=== PATIENT | female | born 1940 | race Caucasian/White ===

== ENCOUNTER 2020-07-18 10:28 | Outpatient (REF) | payer MEDICARE, SELFPAY ==
[2020-07-18 14:48] LABS: Alanine Aminotransferase 26 U/L (0-31); Anion Gap 17 (12-20); Aspartate Amino Transferase 30 U/L (5-31); Blood Urea Nitrogen 18 mg/dL (9-16); Calcium 9.5 mg/dL (8.4-10.2); Carbon Dioxide 24 mmol/L (22-29); Chloride 107 mmol/L (96-108); Cholesterol 202 mg/dL; Estimated Glomerular Filt Rate > 60; Glucose Fasting 92 mg/dL (60-99); HDL Cholesterol 63 mg/dL; LDL Cholesterol Calculated 117 mg/dl; Potassium 4.5 mmol/l (3.3-5.1); Sodium 143 mmol/L (135-145); Triglycerides 111 mg/dL; Vitamin D 25-OH Total 36.7 ng/mL (>30)
== END 2020-07-18 10:29 | disposition home or self-care (01) ==
LOC: HO.HMGCLDS 10:28
PROVIDERS: PCP Internal Medicine; Visit Provider Internal Medicine
DX: F41.9 Anxiety disorder, unspecified (principal); I10 Essential (primary) hypertension; E78.5 Hyperlipidemia, unspecified; Z78.0 Asymptomatic menopausal state
CPT/HCPCS: 36415; 80048; 80061; 82306; 84450; 84460

== ENCOUNTER 2020-10-18 10:42 | Outpatient (REF) | payer MEDICARE, SELFPAY ==
--- NOTE | ~2020-10-18 | MM_ITS ---
EXAMINATION: MM SCREENING DIGITAL BREAST TOMOSYNTHESIS, BILATERAL CLINICAL INFORMATION: Screening. Asymptomatic. The lifetime risk of breast cancer based on the Tyrer-Cuzick Model is 20%. COMPARISON: Mammography: September 30, 2018 and studies dating back to February 09, 2014 TECHNIQUE: Digital breast tomosynthesis is performed in both the craniocaudal and mediolateral oblique views along with computer-aided detection (CAD). Synthesized 2D images are generated from the tomosynthesis. FINDINGS: The breasts are heterogeneously dense, which may obscure small masses (ACR BI-RADS breast composition Category c). There are no significant masses, abnormal calcifications, or other abnormalities. MM/MM tomosynthesis screening BI IMPRESSION: There are no significant changes from prior study. ASSESSMENT: BI-RADS 1: Negative RECOMMENDATION: Routine annual mammography screening. This patient's information was entered into a reminder system with a target due date for their next mammogram.
== END 2020-10-18 10:43 | disposition home or self-care (01) ==
LOC: HO.MAMMO 10:42
PROVIDERS: PCP Internal Medicine; Visit Provider Internal Medicine
DX: Z12.31 Encounter for screening mammogram for malignant neoplasm of breast (principal)
CPT/HCPCS: 77063; 77067

== ENCOUNTER 2020-11-22 10:50 | Outpatient (REF) | payer MEDICARE, SELFPAY ==
[2020-11-22 14:43] LABS: Alanine Aminotransferase 18 U/L (0-31); Albumin Level 4.3 g/dL (3.5-5.0); Alkaline Phosphatase 76 U/L (39-117); Anion Gap 14 (12-20); Aspartate Amino Transferase 22 U/L (5-31); Bilirubin Total 0.7 mg/dL (0.0-1.0); Blood Urea Nitrogen 16 mg/dL (9-16); Calcium 9.5 mg/dL (8.4-10.2); Carbon Dioxide 27 mmol/L (22-29); Chloride 105 mmol/L (96-108); Cholesterol 203 mg/dL; Estimated Glomerular Filt Rate > 60; Glucose Fasting 99 mg/dL (60-99); HDL Cholesterol 71 mg/dL; LDL Cholesterol Calculated 118 mg/dl; Potassium 4.1 mmol/L (3.3-5.1); Sodium 142 mmol/L (135-145); Triglycerides 74 mg/dL
[2020-11-22 15:08] LABS: Vitamin D 25-OH Total 40.4 ng/mL (>30)
== END 2020-11-22 10:51 | disposition home or self-care (01) ==
LOC: HO.HMGCLDS 10:50
PROVIDERS: PCP Internal Medicine; Visit Provider Internal Medicine
DX: I10 Essential (primary) hypertension (principal); E78.5 Hyperlipidemia, unspecified; F41.1 Generalized anxiety disorder; M85.852 Other specified disorders of bone density and structure, left thigh; Z78.0 Asymptomatic menopausal state
CPT/HCPCS: 36415; 80053; 80061; 82306

== ENCOUNTER 2021-07-03 10:11 | Outpatient (REF) | payer MEDICARE, SELFPAY ==
[2021-07-03 12:21] LABS: Alanine Aminotransferase 19 U/L (0-31); Anion Gap 11 (12-20); Aspartate Amino Transferase 21 U/L (5-31); Blood Urea Nitrogen 15 mg/dL (9-16); Calcium 10.2 mg/dL (8.4-10.2); Carbon Dioxide 30 mmol/L (22-29); Chloride 106 mmol/L (96-108); Cholesterol 205 mg/dL; Estimated Glomerular Filt Rate > 60; Glucose Fasting 106 mg/dL (60-99); HDL Cholesterol 63 mg/dL; LDL Cholesterol Calculated 124 mg/dl; Sodium 143 mmol/L (135-145); Triglycerides 92 mg/dL
[2021-07-03 12:54] LABS: Folate 16.6 ng/mL (> or = 4.0); Vitamin B12 676 pg/mL (200-900)
== END 2021-07-03 10:12 | disposition home or self-care (01) ==
LOC: HO.HMGCLDS 10:11
PROVIDERS: PCP Internal Medicine; Visit Provider Internal Medicine
DX: M85.852 Other specified disorders of bone density and structure, left thigh (principal); I10 Essential (primary) hypertension; E78.5 Hyperlipidemia, unspecified; Z78.0 Asymptomatic menopausal state
CPT/HCPCS: 36415; 80048; 80061; 82306; 82607; 82746; 84450; 84460

== ENCOUNTER 2022-01-01 10:27 | Outpatient (REF) | payer MEDICARE, SELFPAY ==
[2022-01-01 12:16] LABS: Alanine Aminotransferase 13 U/L (0-31); Anion Gap 13 (12-20); Aspartate Amino Transferase 19 U/L (5-31); Blood Urea Nitrogen 16 mg/dL (9-16); Calcium 9.8 mg/dL (8.4-10.2); Carbon Dioxide 27 mmol/L (22-29); Chloride 104 mmol/L (96-108); Cholesterol 212 mg/dL; Estimated Glomerular Filt Rate > 60; Glucose Fasting 108 mg/dL (60-99); HDL Cholesterol 64 mg/dL; LDL Cholesterol Calculated 131 mg/dl; Potassium 4.1 mmol/L (3.3-5.1); Sodium 140 mmol/L (135-145); Triglycerides 86 mg/dL
[2022-01-01 12:20] LABS: Vitamin D 25-OH Total 42.5 ng/mL (>30)
[2022-01-01 13:11] LABS: Folate 16.5 ng/mL (> or = 4.0); Vitamin B12 552 pg/mL (200-900)
== END 2022-01-01 10:28 | disposition home or self-care (01) ==
LOC: HO.HMGCLDS 10:27
PROVIDERS: Visit Provider Internal Medicine
DX: I10 Essential (primary) hypertension (principal); M85.852 Other specified disorders of bone density and structure, left thigh; E78.5 Hyperlipidemia, unspecified
CPT/HCPCS: 36415; 80048; 80061; 82306; 82607; 82746; 84450; 84460

== ENCOUNTER 2022-02-22 12:07 | Outpatient (REF) | payer MEDICARE, SELFPAY ==
--- NOTE | ~2022-02-22 | XR_ITS ---
EXAMINATION: XR LUMBOSACRAL SPINE WITH OBLIQUES CLINICAL INFORMATION: Continued low back pain COMPARISON: 12/27/2016 TECHNIQUE: AP, both oblique, and lateral views of the lumbar spine. Lateral view of the lumbosacral junction. FINDINGS: There is a severe compression fracture L4. This is new. Moderate compression deformity L1 and L2 are noted. These are unchanged. There is degenerative change at the lumbosacral junction. XR/XR lumbar spine 4V min IMPRESSION: Compression fractures noted, with the L4 fracture new.
== END 2022-02-22 12:08 | disposition home or self-care (01) ==
LOC: HO.HMGCX 12:07
PROVIDERS: PCP Internal Medicine; Visit Provider Student in an Organized Health Care Education/Training Program
DX: M47.816 Spondylosis without myelopathy or radiculopathy, lumbar region (principal)
CPT/HCPCS: 72110

== ENCOUNTER 2022-03-20 12:49 | Outpatient (REF) | payer MEDICARE, SELFPAY ==
--- NOTE | ~2022-03-20 | MR_ITS ---
EXAMINATION: MR LUMBAR SPINE WITHOUT CONTRAST CLINICAL INFORMATION: 81-year-old with previously noted compression fractures. COMPARISON: 02/22/2022 x-rays. TECHNIQUE: MRI of the lumbar spine was obtained using routine sequences without contrast. FINDINGS: Coronal Alignment: There is mid lumbar dextro scoliosis, convex to the right at L3, with the mild degrees of rezn-lc-mpvwp lateral listhesis at L4-L5 and L3-L4 and aljnd-ml-yqpf lateral listhesis at L2-L3 and L1-L2. Sagittal Alignment: There are mild degrees of grade 1 degenerative spondylolisthesis at L4-L5 and L3-L4 and trace retrolisthesis at L2-L3 with otherwise normal lumbar lordotic curvature. Lumbosacral Junction: Normal. 5 sdb-znz-rizwgvv lumbar-type vertebral bodies suspected. 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 Vertebral Bodies: L5 is normal in height. There is ozft-dc-fpjsijvr chronic loss of height asymmetric to the right at L4, which appears healed, with prominent concavity along the superior endplate. There is mild chronic loss of height asymmetric to the right at L3 with prominent concavity along the superior endplate. There is moderate anterior wedge compression deformity of L2, which appears chronic with prominent concavity along the superior endplate, with similar findings at L1. There is a mild to moderate nonhealed superior endplate compression fracture of T12, with marrow edema throughout the T12 vertebral body and extending into the pedicles and posterior elements bilaterally. T11 and T10 appear normal in height. Disc Spaces and Endplates: Severe disc space height loss at L5-S1 with disc desiccation, Schmorl's nodes and prominent anterolateral spondylosis. Disc desiccation at L4-L5 with mild height loss on the right at this level and mild spondylosis. Disc desiccation at L3-L4 with anterior and paravertebral spondylosis and ovcvigst-bn-dpsohl height loss on the left at this level. Disc desiccation and moderate to marked height loss on the left at L2-L3 with anterior and paravertebral spondylosis. Disc desiccation, with moderate disc space height loss, Schmorl's nodes and spondylosis at L1-L2, with disc desiccation at the remaining levels and prominent anterolateral spondylosis with bridging osteophytosis anteriorly at T10-T11. Spinal Canal: Moderately prominent epidural fat noted throughout the mid lumbar canal. Bone Marrow: Marrow edema at T12 as described above consistent with a compression fracture. Type I degenerative marrow signal changes noted along the endplates posteriorly asymmetric to the left at L2-L3. Decreased T1 marrow signal in the T12 vertebral body and pedicles is likely reflective of marrow edema secondary to compression fracture. There is heterogeneous marrow signal seen throughout the remainder of the osseous structures on T1-weighted imaging which is nonspecific and should be correlated with clinical history and CBC with differential. Conus Medullaris: Terminates at L1. Morphology and signal is normal. Intradural Nerve Roots: Within normal limits. L5-S1: Concentric disc osteophyte complex noted with mild flattening of the ventral dural sac and moderate bilateral facet arthropathy without significant canal stenosis. Minor foraminal narrowing is noted bilaterally without neural impingement. L4-L5: Unroofing of the posterior disc margin is noted consistent with grade 1 spondylolisthesis. Mild posterior disc osteophyte complex asymmetric to the right noted with xgtk-hv-vvorouxg flattening of the ventral dural sac asymmetric to the right and mild ligamentum flavum thickening. Severe bilateral facet arthropathy is noted with borderline central spinal canal stenosis and slight narrowing of the right subarticular recess. Mild foraminal narrowing noted on the right without neural impingement. L3-L4: Unroofing of the posterior disc margin consistent with grade 1 spondylolisthesis, with pseudodisc bulging and a superimposed small right subarticular to foraminal disc protrusion. There is flattening of the ventral dural sac with a prominent dorsal epidural fat pad and marked ligamentum flavum thickening with interspinous ligament degeneration. Severe left-sided and moderate to severe right-sided facet arthropathy is also noted. There is moderate to severe central spinal canal stenosis, with crowding of the intradural nerve roots and pylt-bv-kscyynye left subarticular recess stenosis. There is mild bilateral neural foraminal stenosis, with disc osteophyte complex contacting the exiting right L3 nerve root. L2-L3: Concentric disc bulging and endplate spurring is noted with vbpg-bx-zojzpgsn flattening of the ventral dural sac. Prominent dorsal epidural fat pad noted with ligamentum flavum thickening and interspinous ligament degeneration. Severe left-sided and moderate right-sided facet arthrosis is present with mild central spinal canal stenosis without significant lateral recess stenosis. Moderate left-sided and tmqp-zo-excdjosi right-sided neural foraminal stenosis is noted with facet spurring impinging on the exiting left L2 nerve root and disc bulging contacting the extraforaminal right L2 nerve root. L1-L2: Broad-based posterior disc osteophyte complex noted with mepa-cs-nqiiumqv flattening of the ventral dural sac with a prominent dorsal epidural fat pad and zrgg-fa-ubzoohdc bilateral facet arthrosis with ligamentum flavum thickening. No significant spinal central canal stenosis. There is mild narrowing of the left subarticular zone and there is vkog-gb-gavclxum bilateral neural foraminal stenosis without exiting neural impingement. T12-L1: Minor posterolateral disc protrusions bilaterally with slight flattening of the ventral dural sac and minor facet arthrosis without significant canal or neuroforaminal stenosis. T11-T12: Mild retropulsion of the compressed superior endplate of T12 is noted with mild flattening of the ventral dural sac without cord impingement or canal stenosis. No disc bulge or herniation. There is moderate bilateral facet arthropathy and there is subchondral marrow edema on both sides of both facet joints, which is nonspecific and could be related to stress reactions from the previous trauma or could be secondary to reactive changes from facet arthropathy. There is moderate to severe bilateral neural foraminal stenosis with possible encroachment on the exiting right T11 nerve root. Paraspinal/Retroperitoneal: There is npbxqrow-ki-wvxqws diffuse posterior paraspinal muscle volume loss and tjud-kh-zanlcxlz psoas muscle volume loss, left more than right. No paraspinal soft tissue masses or hematoma. Multiple simple-appearing parapelvic cysts in the right kidney noted with similar findings in the left kidney. Limited evaluation.?No specific follow up recommended based on the current ACR Best Practice Guidelines.?1.1 cm probable cyst in the right hepatic lobe. Marked tortuosity of the abdominal aorta with 2.5 cm of focal dilatation distally. Left adrenal thickening versus mass. Faintly visualized T2 hyperintense zone measuring 2.8 cm spanning the left and right hepatic lobes. Cannot exclude a mass. MR/MR lumbar spine wo con IMPRESSION: 1. Lumbar dextroscoliosis, with extensive multilevel degenerative subluxations as described above associated with multilevel DDD and spondylosis. 2. Mild to moderate nonhealed superior endplate compression fracture of T12 with marrow edema extending into the posterior elements of T11 and T12 adjacent to the facet joints. This latter finding could reflect stress reactions or could be secondary to facet arthropathy at this level. 3. Chronic, healed compression fracture deformities of L1, L2, L3 and L4 as detailed above. 4. Extensive multilevel bilateral facet arthropathy and ligamentum flavum thickening with multilevel interspinous ligament degeneration. 5. Moderate to severe spinal canal stenosis at L3-L4 and mild spinal canal stenosis at L4-L5 and L2-L3 as detailed above. 6. Multilevel bilateral neural foraminal stenosis as detailed above. 7. Multiple abdominal findings as discussed above warranting further assessment with CT of the abdomen with IV contrast.
== END 2022-03-20 12:50 | disposition home or self-care (01) ==
LOC: HO.MRI 12:49
PROVIDERS: Visit Provider Student in an Organized Health Care Education/Training Program
DX: S32.000A Wedge compression fracture of unspecified lumbar vertebra, initial encounter for closed fracture (principal)
CPT/HCPCS: 72148

== ENCOUNTER 2022-07-09 09:40 | Outpatient (REF) | payer MEDICARE, SELFPAY ==
[2022-07-09 11:50] LABS: Alanine Aminotransferase 14 U/L (0-31); Anion Gap 10 (12-20); Aspartate Amino Transferase 20 U/L (5-31); Blood Urea Nitrogen 16 mg/dL (9-16); Calcium 9.6 mg/dL (8.4-10.2); Carbon Dioxide 30 mmol/L (22-29); Chloride 106 mmol/L (96-108); Cholesterol 213 mg/dL; Estimated Glomerular Filt Rate > 60; Glucose Fasting 102 mg/dL (60-99); HDL Cholesterol 66 mg/dL; LDL Cholesterol Calculated 131 mg/dl; Sodium 142 mmol/L (135-145); Triglycerides 83 mg/dL
[2022-07-09 12:06] LABS: Vitamin D 25-OH Total 42.8 ng/mL (>30)
[2022-07-09 12:14] LABS: Folate 11.7 ng/mL (> or = 4.0); Vitamin B12 647 pg/mL (200-900)
== END 2022-07-09 09:41 | disposition home or self-care (01) ==
LOC: HO.HMGCLDS 09:40
PROVIDERS: PCP Internal Medicine; Visit Provider Internal Medicine
DX: E78.5 Hyperlipidemia, unspecified (principal); F41.1 Generalized anxiety disorder; M85.852 Other specified disorders of bone density and structure, left thigh; N95.9 Unspecified menopausal and perimenopausal disorder; I10 Essential (primary) hypertension
CPT/HCPCS: 36415; 80048; 80061; 82306; 82607; 82746; 84450; 84460

== ENCOUNTER 2022-07-12 13:23 | Outpatient (AMB) | payer MEDICARE, SELFPAY ==
--- NOTE | 2022-07-12 13:26 | A.OFFPC_ITS ---
Vital Signs 07/12/22 13:30 Height 5 ft 6 in Weight 152 lb BMI 24.5 BP 110/70 Blood Pressure Location Rt brachial Position Sitting Pulse 88 Pulse Source Pulse Oximeter Pulse Oximetry (%) 98 Oxygen Delivery Method Room Air Intake Visit Reasons: 6 months f/u Allergies ranitidine [Zantac] Allergy (Unknown, Verified 11/02/22 12:04) fever and rash lisinopril Adverse Reaction (Unknown, Verified 11/02/22 12:04) dry cough famotidine [From Pepcid] Adverse Reaction (Verified 11/02/22 12:04) elevates BP Medication List - Last Reconciled 07/12/22 by Ijeoma Toledo MD cholecalciferol (vitamin D3) 50 mcg PO DAILY cyanocobalamin (vitamin B-12) 1,000 mcg PO DAILY flu vac 2020 [id number](PF) 60 mcg (15 mcg x 4)/0.5 mL IM fluticasone propionate 50 mcg/actuation 1 spray intranasal DAILY PRN hydrochlorothiazide 12.5 mg PO DAILY hydrocortisone 2.5% 1 appl FL BID PRN lorazepam 1 mg PO DAILY PRN pravastatin 20 mg PO DAILY Tobacco use date assessed: 07/12/22 Fall risk assessment: No Falls in past year HPI 6 months f/u HPI Details 81-year-old lady with history of COPD, o steopenia of left femoral neck,, and generalized anxiety disorder here today for follow-up on her hypertension and dyslipidemia. She has been compliant with taking her medications, tries to follow recommended diet . Would like to discontinue hydrochlorothiazide due to urinary frequency, blood pressure has been stable. Latest fasting lipids showed results within normal limits except for slightly elevated LDL cholesterol, unchanged from last check 6 months ago. Blood pressure has been stable and controlled on present treatment.. Continues to smoke cigarettes with no desire to quit at present time [facility] Medical History (Updated 03/17/23 @ 18:45 by Ijeoma Toledo MD) Postmenopausal atrophic vaginitis History of compression fracture of spine Impaired fasting glucose Frontal fibrosing alopecia Hx of basal cell carcinoma External hemorrhoids Basal cell carcinoma (BCC) of upper extremity Smoker unmotivated to quit COPD (chronic obstructive pulmonary disease) Lumbar compression fracture Osteopenia of left femoral neck Essential hypertension Dyslipidemia Generalized anxiety disorder Surgical History History of ganglion cyst H/O left breast biopsy History of tonsillectomy History of colonoscopy Family History Father No problems noted. Mother No problems noted. Sister No problems noted. Sister Breast cancer Endometrial cancer Daughter No problems noted. Daughter No problems noted. Social History Housing: House Alcohol intake: current Patient Tobacco Use Status: Current everyday Tobacco user Cigarette Packs Per Day: 0 Cigarettes Per Day: 15 Years Smoked: 68 e-Cigarette/Vaping Use: Never Used service: No Current occupational status: retired Cognitive needs: No Hearing needs: No Vision needs: Yes Questionnaire PHQ-9 Over the last 2 weeks, how often have you been bothered by any of the following problems? 1. Little interest or pleasure in doing things: not at all 2. Feeling down, depressed, or hopeless: not at all 3. Trouble falling or staying asleep, or sleeping too much: not at all 4. Feeling tired or having little energy: not at all 5. Poor appetite or overeating: not at all 6. Feeling bad about yourself - or that you are a failure or have let yourself or your family down: not at all 7. Trouble concentrating on things, such as reading the newspaper or watching television: not at all 8. Moving or speaking so slowly that other people could have noticed. Or the opposite - being so fidgety or restless that you have been moving around a lot more than usual: not at all 9. Thoughts that you would be better off or of hurting yourself in some way: not at all Total score: 0 Depression Screening Interpretation: Negative 12466 - PHQ-9 Billing: Yes Source: Developed by Drs. Ronny England, Yesy Garcia, Feliz Garay and colleagues, with an educational orly from [employer]. Thrive Questionnaire Date Thrive assessed: 07/12/22 I am a: Patient What is your living situation today?: I have a steady place to live Within the past 12 months, did the food you bought not last and you didn't have the money to get more?: Never true Within the past 12 months, did you worry whether your food would run out before you got money to buy more?: Never true Do you have trouble paying for medicines?: No Do you have trouble getting transportation to medical appointments?: No Do you have trouble paying your heating and electricity bill?: No Do you have trouble taking care of your child, family member or friend?: No Do you have trouble with day-to-day activities such as bathing, preparing meals, shopping, managing finances, etc.?: No Are you currently unemployed and looking for a job?: No Are you interested in more education?: No AUDIT C Alcohol Use Questionnaire (AUDIT-C) 1. How often do you have a drink containing alcohol?: Monthly or less 2. How many drinks containing alcohol do you have on a typical day when you are drinking?: 1 or 2 3. How often do you have six or more drinks on one occasion?: Never Total Score: 1 KALINA-7 AMB Questionnaire KALINA-7 Date KALINA - 7 assessed: 07/12/22 Feeling nervous, anxious, or on edge: 0 = Not at all Not being able to stop or control worryin = Not at all Worrying too much about different things: 0 = Not at all Trouble relaxin = Not at all Being so restless that it is hard to sit still: 0 = Not at all Becoming easily annoyed or irritable: 0 = Not at all Feeling afraid as if something awful might happen: 0 = Not at all Total KALINA-7 score (0-4 normal; 5-9 mild; 10-14 moderate; 15-21 severe): 0 Source: Developed by Drs. Ronny England, Yesy Garcia, Feliz Garay and colleagues, with an educational orly from [employer]. KALINA-7 Assessment Billing KALINA-7 Assessment Tool: KALINA-7 Assessment 09390 Review of Systems Const Denies body aches, Reports difficulty sleeping (Occasional), Denies fatigue, Denies fever(s), Denies headache(s) and Denies weakness ENT Denies dizziness, Denies headache(s), Denies nasal congestion, Denies nasal discharge and Denies sore throat Card Denies chest pain, Denies lightheadedness, Denies palpitations and Denies dyspnea Resp Denies chest congestion, Denies cough and Denies dyspnea GI Denies abdominal pain, Denies change in bowel habits and Denies heartburn Denies urinary frequency, Denies dysuria and Denies urinary urgency Musc Reports no additional complaints Neuro Denies dizziness, Denies headache(s) and Denies weakness Psych Reports abnormal sleep pattern, Denies depression, Denies difficulty concentrating, Denies homicidal ideation and Denies suicidal ideation Endo Denies fatigue, Denies polydipsia, Denies polyuria and Denies palpitations Physical exam (Primary Care) Vital Signs: Last Vital Signs Pulse 88 07/12/22 13:30 BP 110/70 07/12/22 13:30 Pulse Ox 98 07/12/22 13:30 Oxygen Delivery Method Room Air 07/12/22 13:30 BMI result Body Mass Index 24.5 Tobacco/Smoking Status: Tobacco use Status Tobacco use date assessed 07/12/22 07/12/22 13:31 Patient Tobacco Use Status Current everyday Tobacco 07/12/22 13:28 e-Cigarette/Vaping Use Never Used 07/12/22 13:28 PHQ-9: PHQ-9 Score PHQ-9: Total score 0 11/02/22 12:35 Depression Screening Interpretation: Negative Thrive Assessment: Date of Thrive Assessment Date Thrive assessed 07/12/22 07/12/22 15:51 Const Other: Alert oriented x3 no acute distress noted ambulatory normal gait Orientation/consciousness: patient oriented x3 HENMT Other: Normocephalic atraumatic, no nasal drainage, moist oral mucosa Eyes General: appearance normal, both eyes and all related structures Neck Other: Neck is supple with no lymphadenopathy palpated, thyroid gland nonpalpable Neck: Yes no meningeal signs Resp Other: Clear to auscultation bilaterally Cardio Other: S1-S2 present regular rate and rhythm GI Other: Normal bowel sounds, soft, nontender, no mass palpated Neuro General: patient oriented x3, gait normal, moves all extremities, Normal light touch and pain sensation, no meningeal signs and no focal motor deficits Extrem General: Yes full ROM, Yes no joint enlargement, Yes no pedal edema, Yes no calf tenderness and Yes normal gait Psych Appearance: grossly normal Mental Status: mental status grossly normal Speech and movement: Normal speech and movement present Affect: normal affect Attitude: cooperative Thought process: Normal thought process present Immunizations pneumoc 20-venessa conj-dip cr(PF) 0.5 mL IM syringe Performing Provider: Ijeoma Toledo MD [facility] Administered by: Ade Estrada RN on 07/12/22 14:17 Dose Route Admin Location Dispensed Lot Number Expiration Date NDC Swimming Pool Maintenance Supervisor 0.5 mL IM Left Deltoid 0.5 mL [id number] 10/22/23 8911-5700-60 WYETH/PFIZER VIS Given Date VIS Provided VIS Publication Date 07/12/22 Single Vaccine 21 Eligibility Eligibility Date Funding Source Not VFC Eligible 07/12/22 Private Results Reviewed Results Reviewed: ENTERED: 07/09/[address]: ORDERED: Met Prof Fast, AST, ALT, Lipid Panel, Vitamin D 25-OH Test Result Flag Reference Site Sodium 142 135-145 mmol/L Potassium 4.0 3.3-5.1 mmol/L CL 106 96-108 mmol/L CO2 30 H 22-29 mmol/L Gap 10 L 12-20 BUN 16 9-16 mg/dL Creat 0.69 0.5-1.4 mg/dL EGFR > 60 NOTE: For -[place] individuals, multiply the result by 1.210. Chronic Kidney Disease: Estimated GFR < 60 mL/min/1.73m2 Severe Kidney Disease: Estimated GFR < 15 mL/min/1.73m2 FBS 102 H 60-99 mg/dL A fasting glucose from 100-125 mg/dl is considered impaired (pre-diabetes). CA 9.6 8.4-10.2 mg/dL AST (GOT) 20 5-31 U/L ALT (GPT) 14 0-31 U/L Triglyceride 83 mg/dL Desirable Triglyceride: less than 150 mg/dL Borderline High Triglyceride 150-199 mg/dL High Triglyceride: 200-499 mg/dL Very High Triglyceride: greater than or equal to 5OO mg/dL Chol 213 mg/dL Desirable Cholesterol: less than 200 mg/dL Borderline High Cholesterol: 200-239 mg/dL High Cholesterol: greater than 239 mg/dL LDL Calculated 131 mg/dl Desirable LDL: less than 100 mg/dL Near Optimal/Above Optimal LDL: 110-129 mg/dL Borderline High LDL: 130-159 mg/dL High LDL: 160-189 mg/dL Very High LDL: greater than or equal to 190 mg/dL HDL 66 mg/dL Desirable HDL: greater than 40 mg/dL Note: This HDL assay may give artificially low results in patients with liver disease. Vit D 25-OH Tot 42.8 >30 ng/mL Health Based Reference Values* < 20 ng/mL Deficient 20-30 ng/mL Insufficient > 30 ng/mL Sufficient Assessment and Plan Assessment & Plan (1) Osteopenia of left femoral neck: Code(s): M85.852 - Other specified disorders of bone density and structure, left thigh Plan: Continued regular weight-bearing exercise, continue taking vitamin-D 3 supplements daily, and calcium from dietary sources. Bone density scan ordered (2) History of compression fracture of spine: Code(s): Z87.81 - Personal history of (healed) traumatic fracture (3) Impaired fasting glucose: Code(s): R73.01 - Impaired fasting glucose Plan: Your fasting blood sugars elevated above 100 mg/dL. Impaired glucose metabolism O2 at risk for developing diabetes mellitus type 2, as well as heart attack and stroke later on. Lifestyle changes at just weight loss, healthy eating habits, and regular exercise are important, and can prevent the progression to diabetes Prevnar 20 given today (4) Essential hypertension: Code(s): I10 - Essential (primary) hypertension Plan: Blood pressure at goal of less than 130/80. Continue with current medication but except for hydrochlorothiazide which was discontinued. Reinforced importance of following a low sodium diet, getting regular exercise, and lowering stress levels. (5) Dyslipidemia: Code(s): E78.5 - Hyperlipidemia, unspecified Plan: Reviewed recent fasting lipid profile with patient with levels within normal limits . Continue with pravastatin 20 mg at bedtime , in addition to adherence to low-cholesterol diet and regular exercise, at least 30 minutes 3 to 4 times a week. Advised patient to make healthy food choices, eat more fruits, vegetables, whole grains, wild caught fish and low-fat dairy. Limit amount of meat and fried or fatty food products, as well as processed foods and fast foods. (6) Generalized anxiety disorder: Code(s): F41.1 - Generalized anxiety disorder Plan: Continue lorazepam taken 1 mg as needed for acute anxiety attacks Orders: Orders XR DEXA axial skeleton 07/12/22 M85.852 - Other specified disorders of bone density and structure, left thigh, Z87.81 - Personal history of (healed) traumatic fracture Pneumococcal 20 Immunization 07/12/22 Z23 - Encounter for immunization, Z87.81 - Personal history of (healed) traumatic fracture, R73.01 - Impaired fasting glucose, M85.852 - Other specified disorders of bone density and structure, left thigh, I10 - Essential (primary) hypertension, E78.5 - Hyperlipidemia, unspecified, S32.000A - Wedge compression fracture of unspecified lumbar vertebra, initial encounter for closed fracture Aspartate Amino Transferase 11/19/22 Z87.81 - Personal history of (healed) traumatic fracture, R73.01 - Impaired fasting glucose, M85.852 - Other specified disorders of bone density and structure, left thigh, I10 - Essential (primary) hypertension, E78.5 - Hyperlipidemia, unspecified, S32.000A - Wedge compression fracture of unspecified lumbar vertebra, initial encounter for closed fracture Lipid Panel 11/19/22 Z87.81 - Personal history of (healed) traumatic fracture, R73.01 - Impaired fasting glucose, M85.852 - Other specified disorders of bone density and structure, left thigh, I10 - Essential (primary) hypertension, E78.5 - Hyperlipidemia, unspecified, S32.000A - Wedge compression fracture of unspecified lumbar vertebra, initial encounter for closed fracture Alanine Aminotransferase 11/19/22 Z87.81 - Personal history of (healed) traumatic fracture, R73.01 - Impaired fasting glucose, M85.852 - Other specified disorders of bone density and structure, left thigh, I10 - Essential (primary) hypertension, E78.5 - Hyperlipidemia, unspecified, S32.000A - Wedge compression fracture of unspecified lumbar vertebra, initial encounter for closed fracture Vitamin D 25-OH Total 11/19/22 Z87.81 - Personal history of (healed) traumatic fracture, R73.01 - Impaired fasting glucose, M85.852 - Other specified disorders of bone density and structure, left thigh, I10 - Essential (primary) hypertension, E78.5 - Hyperlipidemia, unspecified, S32.000A - Wedge compression fracture of unspecified lumbar vertebra, initial encounter for closed fracture Hemoglobin A1c 11/19/22 Z87.81 - Personal history of (healed) traumatic fracture, R73.01 - Impaired fasting glucose, M85.852 - Other specified disorders of bone density and structure, left thigh, I10 - Essential (primary) hypertension, E78.5 - Hyperlipidemia, unspecified, S32.000A - Wedge compression fracture of unspecified lumbar vertebra, initial encounter for closed fracture Basic Metabolic Panel Fasting 11/19/22 Z87.81 - Personal history of (healed) traumatic fracture, R73.01 - Impaired fasting glucose, M85.852 - Other specified disorders of bone density and structure, left thigh, I10 - Essential (primary) hypertension, E78.5 - Hyperlipidemia, unspecified, S32.000A - Wedge compression fracture of unspecified lumbar vertebra, initial encounter for closed fracture Medications: Discontinued hydrochlorothiazide Discontinued Reason: Doctor's Order 12.5 mg PO DAILY 90 caps 3RF Coding Level of Care Code Est Pt Level 4 (55853) Diagnoses Osteopenia of left femoral neck M85.852 History of compression fracture of spine Z87.81 Impaired fasting glucose R73.01 Essential hypertension I10 Dyslipidemia E78.5 Generalized anxiety disorder F41.1 Additional Codes KALINA-7 Assessment Billing - KALINA-7 Assessment Tool: KALINA-7 Assessment 82299 ([id number])
[2022-07-12 13:30] VITALS: BP 110/70; PULSE 88; O2SAT 98; BMI 24.5
== END 2022-07-12 14:10 | disposition home or self-care (01) ==
LOC: HO.HMGC 13:24
PROVIDERS: PCP Internal Medicine; Visit Provider Internal Medicine
DX: M85.852 Other specified disorders of bone density and structure, left thigh (principal); Z87.81 Personal history of (healed) traumatic fracture; R73.01 Impaired fasting glucose; I10 Essential (primary) hypertension; E78.5 Hyperlipidemia, unspecified; F41.1 Generalized anxiety disorder; Z23 Encounter for immunization; S32.000A Wedge compression fracture of unspecified lumbar vertebra, initial encounter for closed fracture
CPT/HCPCS: 90471; 90677; 99214

== ENCOUNTER 2022-07-25 12:53 | Outpatient (REF) | payer MEDICARE, SELFPAY ==
--- NOTE | ~2022-07-25 | MM_ITS ---
EXAMINATION: BONE DENSITOMETRY CLINICAL INDICATION: Osteopenia. COMPARISON: Previous BD dated 09/30/2018 and baseline BD dated 03/27/2013. MR lumbar spine 03/20/2022. TECHNIQUE: Using a [employer] DXA System (software version: 13.1) manufactured by [employer], dual-energy x-ray absorptiometry was performed of the lumbar spine and left hip. The images are of good technical quality. Summary results are attached. FINDINGS: AP SPINE L1-L4 (excluding L2 and L3): The data of L1-L4 has been changed to exclude the L2 and L3 vertebral bodies, because degenerative changes at these levels may cause overestimation of lumbar spine density. Old compressions at L1 and L1 L4 may also be overestimated of the lumbar bone density. Current: BMD 1.104 g/cm2, Z-score 1.3, T-score -0.5, normal, 0.7% increase from previous, 8.6% decrease from baseline (<5% change is not significant). Prior: BMD 1.096 g/cm2. Baseline: BMD 1.208 g/cm2. LEFT FEMUR, NECK: Current: BMD 0.731 g/cm2, Z-score 0.0, T-score -2.2, osteopenia. Prior: BMD 0.804 g/cm2. Baseline: BMD 0.790 g/cm2. LEFT FEMUR, TOTAL: Current: BMD 0.745 g/cm2, Z-score 0.0, T-score -2.1, osteopenia, 9.3% decrease from previous, 8.6% decrease from baseline (<5% change is not significant). Prior: BMD 0.821 g/cm2. Baseline: BMD 0.815 g/cm2. IDENTIFIED RISK FACTORS: Menopause, height loss, history of fracture (adult), thiazide, tobacco use (current smoker). HISTORY OF FRACTURE: T11, T12, L1, L2, L3, and L4. MEDICATIONS: Vitamin D. MM/XR DEXA axial skeleton IMPRESSION: 1. DIAGNOSIS: Osteopenia based on the lowest T-score value of -2.2 in the femoral neck applying World Health Organization criteria. 2. 10-YEAR FRACTURE RISK PREDICTION, FRAX: Major osteoporotic fracture (clinical spine, forearm, hip or shoulder) 25.6%. Hip fracture 11.6%. Comment: Prior MRI 03/20/2022 notes compression deformities T11-L4. 3. Treatment Recommendations: NOF guidelines recommend consideration for treatment in postmenopausal women and men age 50 and older presenting with the following: -A hip or vertebral (clinical or morphometric) fracture. -T-score less than or equal to -2.5 at the femoral neck or spine after appropriate evaluation to exclude secondary causes. -Low bone mass at the hip or spine and a 10-year fracture probability by FRAX of greater than or equal to 3% for hip fracture or greater than or equal to 20% for major osteoporotic fracture based on the [place] adapted WHO algorithm. 4. Other Recommendations: All treatment decisions require clinical judgment and consideration of individual patient factors, including patient preferences, comorbidities, previous drug use, risk factors not captured in the FRAX model (e.g. frailty, falls, vitamin D deficiency, increased bone turnover, interval significant decline in bone density) and possible under or overestimation of fracture risk by FRAX. Additional medical evaluation for secondary cause of low bone mineral density may be appropriate. FUTURE SCAN RECOMMENDATION: People with diagnosed cases of osteoporosis or at high risk for fracture should have regular bone mineral density tests. For patients eligible for Medicare, routine testing is allowed once every 2 years. The testing frequency can be increased to one year for patients who have rapidly progressing disease, those who are receiving or discontinuing medical therapy to restore bone mass, or have additional risk factors.
== END 2022-07-25 12:54 | disposition home or self-care (01) ==
LOC: HO.MAMMO 12:53
PROVIDERS: PCP Internal Medicine; Visit Provider Internal Medicine
DX: Z13.820 Encounter for screening for osteoporosis (principal); M85.852 Other specified disorders of bone density and structure, left thigh; Z87.81 Personal history of (healed) traumatic fracture; Z78.0 Asymptomatic menopausal state
CPT/HCPCS: 77080

== ENCOUNTER 2022-11-02 11:58 | Outpatient (AMB) | payer MEDICARE, SELFPAY ==
--- NOTE | 2022-11-02 12:03 | MHC.PC.OV ---
Vital Signs 11/02/22 12:23 Height 5 ft 6 in Weight 148 lb BMI 23.9 BP 120/78 Blood Pressure Location Lt brachial Position Sitting Pulse 65 Pulse Source Pulse Oximeter Pulse Oximetry (%) 100 Oxygen Delivery Method Room Air Intake Visit Reasons: Follow-up bone density scan Intake Note: Pt is here today for a f/u recent MRI results Allergies ranitidine [Zantac] Allergy (Unknown, Verified 07/12/23 16:12) fever and rash lisinopril Adverse Reaction (Unknown, Verified 07/12/23 16:12) dry cough famotidine [From Pepcid] Adverse Reaction (Verified 07/12/23 16:12) elevates BP Medication List - Last Reconciled 07/12/23 by Ijeoma Toledo MD cholecalciferol (vitamin D3) 50 mcg PO DAILY cyanocobalamin (vitamin B-12) 1,000 mcg PO DAILY estradiol 0.01%(0.1mg/gram) (Estrace) 1 g vaginal 3XW fluticasone propionate 50 mcg/actuation 1 spray intranasal DAILY PRN hydrochlorothiazide 12.5 mg PO QAM hydrocortisone 2.5% 1 appl LA BID PRN lorazepam 1 mg PO DAILY PRN pravastatin 20 mg PO DAILY Tobacco use date assessed: 11/02/22 Fall risk assessment: No Falls in past year Last assessed Fall Risk: 11/02/22 HPI HPI Comments History of Present Illness Details 82-year-old lady here today for follow-up on results for bone density scan done earlier this year.. Has history of lumbar compression fractures as seen on MRI done a year ago.. Patient stays active, with no new complaints at present time. [facility] Medical History Postmenopausal atrophic vaginitis History of compression fracture of spine Impaired fasting glucose Frontal fibrosing alopecia Hx of basal cell carcinoma External hemorrhoids Basal cell carcinoma (BCC) of upper extremity Smoker unmotivated to quit COPD (chronic obstructive pulmonary disease) Lumbar compression fracture Osteopenia of left femoral neck Essential hypertension Dyslipidemia Generalized anxiety disorder Surgical History History of ganglion cyst H/O left breast biopsy History of tonsillectomy History of colonoscopy Family History Father No problems noted. Mother No problems noted. Sister No problems noted. Sister Breast cancer Endometrial cancer Daughter No problems noted. Daughter No problems noted. Social History Housing: House Alcohol intake: current Patient Tobacco Use Status: Current everyday Tobacco user Cigarette Packs Per Day: 0 Cigarettes Per Day: 15 Years Smoked: 68 e-Cigarette/Vaping Use: Never Used service: No Current occupational status: retired Cognitive needs: No Hearing needs: No Vision needs: Yes Questionnaire Thrive Questionnaire Date Thrive assessed: 07/12/22 AUDIT C Alcohol Use Questionnaire (AUDIT-C) 1. How often do you have a drink containing alcohol?: 2-4 times a month 2. How many drinks containing alcohol do you have on a typical day when you are drinking?: 1 or 2 3. How often do you have six or more drinks on one occasion?: Never Total Score: 2 KALINA-7 AMB Questionnaire KALINA-7 Date KALINA - 7 assessed: 07/12/22 Source: Developed by Drs. Ronny England, Yesy Garcia, Feliz Garay and colleagues, with an educational orly from [facility]. Review of Systems Const Denies body aches, Denies fatigue, Denies fever(s), Denies headache(s) and Denies weakness ENT Denies dizziness, Denies headache(s), Denies nasal congestion and Denies nasal discharge Card Denies chest pain, Denies lightheadedness, Denies palpitations and Denies dyspnea Resp Denies chest congestion, Denies cough and Denies dyspnea GI Denies abdominal pain, Denies change in bowel habits and Denies heartburn Denies urinary frequency, Denies dysuria and Denies urinary urgency Musc Reports no additional complaints Neuro Denies dizziness, Denies headache(s) and Denies weakness Endo Denies fatigue, Denies polydipsia, Denies polyuria and Denies palpitations Physical exam (Primary Care) Vital Signs: Last Vital Signs Pulse 65 11/02/22 12:23 BP 120/78 11/02/22 12:23 Pulse Ox 100 11/02/22 12:23 Oxygen Delivery Method Room Air 11/02/22 12:23 BMI result Body Mass Index 23.9 Tobacco/Smoking Status: Tobacco use Status Tobacco use date assessed 11/02/22 11/02/22 12:06 Patient Tobacco Use Status Current everyday Tobacco 11/02/22 12:06 e-Cigarette/Vaping Use Never Used 11/02/22 12:06 Thrive Assessment: Date of Thrive Assessment Date Thrive assessed 07/12/22 11/02/22 12:06 Const Other: Alert oriented x3 no acute distress noted ambulatory normal gait Orientation/consciousness: patient oriented x3 HENMT Other: Normocephalic atraumatic, no nasal drainage, moist oral mucosa Eyes General: appearance normal, both eyes and all related structures Neck Other: Neck is supple with no lymphadenopathy palpated, thyroid gland nonpalpable Resp Other: Clear to auscultation bilaterally Cardio Other: S1-S2 present regular rate and rhythm GI Other: Normal bowel sounds, soft, nontender, no mass palpated Neuro General: patient oriented x3, gait normal, moves all extremities, Normal light touch and pain sensation and no focal motor deficits Extrem General: Yes full ROM, Yes no joint enlargement, Yes no pedal edema, Yes no calf tenderness and Yes normal gait Results Reviewed Results Reviewed: : Bone density scan done 07/25/2022 showed Osteopenia based on the lowest T-score value of -2.2 in the femoral neck applying World Health Organization criteria. Comment: Prior MRI 03/20/2022 notes compression deformities T11-L4. Assessment and Plan Assessment & Plan (1) Osteopenia of left femoral neck: Code(s): M85.852 - Other specified disorders of bone density and structure, left thigh Plan: Discussed results of bone density scan with patient. Advised continue taking vitamin-D 3 supplements at least 50 mcg daily, in addition to taking adequate calcium from dietary sources, and staying active, with regular weight-bearing exercises at least 3-4 times week. Repeat another bone density scan in 2 years (2) History of compression fracture of spine: Code(s): Z87.81 - Personal history of (healed) traumatic fracture Plan: Currently asymptomatic Coding Level of Care Code Est Pt Level 3 (24122) Diagnoses Osteopenia of left femoral neck M85.852 History of compression fracture of spine Z87.81
[2022-11-02 12:23] VITALS: BP 120/78; PULSE 65; O2SAT 100; BMI 23.9
== END 2022-11-02 13:20 | disposition home or self-care (01) ==
LOC: HO.HMGC 11:58
PROVIDERS: PCP Internal Medicine; Visit Provider Internal Medicine
DX: M85.852 Other specified disorders of bone density and structure, left thigh (principal); Z87.81 Personal history of (healed) traumatic fracture
CPT/HCPCS: 99213

== ENCOUNTER 2022-11-15 10:09 | Outpatient (REF) | payer MEDICARE, SELFPAY ==
[2022-11-15 11:25] LABS: Appearance Urine Clear; Color Urine Yellow; Glucose Urine UA Negative (Negative); Leukocyte Esterase Urine Moderate (2+) (Negative); Nitrite Urine Negative (Negative); Specific Gravity - Urine 1.015 (1.005-1.025); UMIC TRIGGER UACC YES; Urine Blood Negative (Negative); Urine Ketones Negative (Negative); Urine Protein Negative (Neg-Trace)
[2022-11-15 11:31] LABS: Bacteria Urine None Seen (None Seen); Hyaline Casts Urine 0-2 /LPF (0-2); RBC Urine 0-2 /HPF (0-2); Squamous Epithelial Cell Urine 0-2 /HPF (0-2); UACC Culture Trigger YES
[2022-11-15 11:37] LABS: Estimated Average Glucose 100 mg/dL; Hemoglobin A1c % 5.1 %
[2022-11-15 12:12] LABS: Alanine Aminotransferase 15 U/L (0-31); Anion Gap 11 (12-20); Aspartate Amino Transferase 20 U/L (5-31); Blood Urea Nitrogen 19 mg/dL (9-16); Carbon Dioxide 29 mmol/L (22-29); Chloride 107 mmol/L (96-108); Cholesterol 209 mg/dL; Estimated Glomerular Filt Rate > 60; Glucose Fasting 108 mg/dL (60-99); HDL Cholesterol 67 mg/dL; LDL Cholesterol Calculated 127 mg/dl; Potassium 4.3 mmol/L (3.3-5.1); Sodium 143 mmol/L (135-145); Triglycerides 79 mg/dL
[2022-11-15 12:13] LABS: Vitamin D 25-OH Total 56.8 ng/mL (>30)
== END 2022-11-15 10:10 | disposition home or self-care (01) ==
LOC: HO.HMGCLDS 10:09
PROVIDERS: PCP Internal Medicine; Visit Provider Internal Medicine
DX: R30.0 Dysuria (principal); R73.01 Impaired fasting glucose; M85.852 Other specified disorders of bone density and structure, left thigh; I10 Essential (primary) hypertension; E78.5 Hyperlipidemia, unspecified; S32.000A Wedge compression fracture of unspecified lumbar vertebra, initial encounter for closed fracture; X58.XXXA Exposure to other specified factors, initial encounter; Y93.9 Activity, unspecified; Y92.9 Unspecified place or not applicable; Y99.9 Unspecified external cause status; Z87.81 Personal history of (healed) traumatic fracture
CPT/HCPCS: 36415; 80048; 80061; 81001; 82306; 83036; 84450; 84460; 87086

== ENCOUNTER 2022-12-11 11:35 | Outpatient (AMB) | payer MEDICARE, SELFPAY ==
--- NOTE | 2022-12-11 11:44 | A.OFFPC_ITS ---
Vital Signs 12/11/22 11:51 Height 5 ft 6 in Weight 149 lb BMI 24.0 BP 130/80 Blood Pressure Location Lt brachial Position Sitting Pulse 61 Pulse Source Pulse Oximeter Pulse Oximetry (%) 100 Oxygen Delivery Method Room Air Intake Visit Reasons: 6 months f/u lipids, htn Intake Note: Pt is here today for her 6mo. f/u lipids and HTN Allergies ranitidine [Zantac] Allergy (Unknown, Verified 07/12/23 16:12) fever and rash lisinopril Adverse Reaction (Unknown, Verified 07/12/23 16:12) dry cough famotidine [From Pepcid] Adverse Reaction (Verified 07/12/23 16:12) elevates BP Medication List - Last Reconciled 07/12/23 by Ijeoma Toledo MD cholecalciferol (vitamin D3) 50 mcg PO DAILY cyanocobalamin (vitamin B-12) 1,000 mcg PO DAILY estradiol 0.01%(0.1mg/gram) (Estrace) 1 g vaginal 3XW fluticasone propionate 50 mcg/actuation 1 spray intranasal DAILY PRN hydrochlorothiazide 12.5 mg PO QAM hydrocortisone 2.5% 1 appl [place] BID PRN lorazepam 1 mg PO DAILY PRN pravastatin 20 mg PO DAILY Tobacco use date assessed: 12/11/22 Fall risk assessment: No Falls in past year Last assessed Fall Risk: 12/11/22 Dental Screening Dental Screen Date: 12/11/22 Did you have a dental visit in the last 12 months?: Yes Did you have a dental problem in the last 6 months where you did not have access to dental care?: No Was dental information given to patient?: Patient has dentist HPI 6 months f/u lipids, htn HPI Details 82-year-old lady with postmenopausal atr ophy vaginitis, currently on Estrace, anxiety disorder, takes lorazepam as needed, here today for follow-up on her hyperlipidemia and hypertension. Has been compliant with taking her medications, currently on hydrochlorothiazide and pravastatin. Compliant with following recommended diet and stays active. Has been feeling well with no complaints at present time, blood pressure within normal limits. [facility] Medical History Postmenopausal atrophic vaginitis History of compression fracture of spine Impaired fasting glucose Frontal fibrosing alopecia Hx of basal cell carcinoma External hemorrhoids Basal cell carcinoma (BCC) of upper extremity Smoker unmotivated to quit COPD (chronic obstructive pulmonary disease) Lumbar compression fracture Osteopenia of left femoral neck Essential hypertension Dyslipidemia Generalized anxiety disorder Surgical History History of ganglion cyst H/O left breast biopsy History of tonsillectomy History of colonoscopy Family History Father No problems noted. Mother No problems noted. Sister No problems noted. Sister Breast cancer Endometrial cancer Daughter No problems noted. Daughter No problems noted. Social History Housing: House Alcohol intake: current Patient Tobacco Use Status: Current everyday Tobacco user Cigarette Packs Per Day: 0 Cigarettes Per Day: 15 Years Smoked: 68 e-Cigarette/Vaping Use: Never Used service: No Current occupational status: retired Cognitive needs: No Hearing needs: No Vision needs: Yes Questionnaire PHQ-9 Over the last 2 weeks, how often have you been bothered by any of the following problems? 1. Little interest or pleasure in doing things: not at all 2. Feeling down, depressed, or hopeless: not at all 3. Trouble falling or staying asleep, or sleeping too much: not at all 4. Feeling tired or having little energy: not at all 5. Poor appetite or overeating: not at all 6. Feeling bad about yourself - or that you are a failure or have let yourself or your family down: not at all 7. Trouble concentrating on things, such as reading the newspaper or watching television: not at all 8. Moving or speaking so slowly that other people could have noticed. Or the opposite - being so fidgety or restless that you have been moving around a lot more than usual: not at all 9. Thoughts that you would be better off or of hurting yourself in some way: not at all Total score: 0 Depression Screening Interpretation: Negative 20884 - PHQ-9 Billing: Yes Source: Developed by Drs. Ronny England, Yesy Garcia, Feliz Garay and colleagues, with an educational orly from [employer]. Thrive Questionnaire Date Thrive assessed: 07/12/22 AUDIT C Alcohol Use Questionnaire (AUDIT-C) 1. How often do you have a drink containing alcohol?: 2-4 times a month 2. How many drinks containing alcohol do you have on a typical day when you are drinking?: 1 or 2 3. How often do you have six or more drinks on one occasion?: Never Total Score: 2 KALINA-7 AMB Questionnaire KALINA-7 Date KALINA - 7 assessed: 12/11/22 Feeling nervous, anxious, or on edge: 1 = Several days Not being able to stop or control worryin = Several days Worrying too much about different things: 1 = Several days Trouble relaxin = Not at all Being so restless that it is hard to sit still: 0 = Not at all Becoming easily annoyed or irritable: 0 = Not at all Feeling afraid as if something awful might happen: 0 = Not at all Total KALINA-7 score (0-4 normal; 5-9 mild; 10-14 moderate; 15-21 severe): 3 Source: Developed by Drs. Ronny England, Yesy Garcia, Feliz Garay and colleagues, with an educational orly from [employer]. KALINA-7 Assessment Billing KALINA-7 Assessment Tool: KALINA-7 Assessment 43489 Review of Systems Const Denies body aches, Denies fatigue, Denies fever(s), Denies headache(s) and Denies weakness ENT Denies dizziness, Denies headache(s), Denies nasal congestion and Denies nasal discharge Card Denies chest pain, Denies lightheadedness, Denies palpitations and Denies dyspnea Resp Denies chest congestion, Denies cough and Denies dyspnea GI Denies abdominal pain, Denies change in bowel habits and Denies heartburn Denies urinary frequency, Denies dysuria and Denies urinary urgency Musc Reports no additional complaints Neuro Denies dizziness, Denies headache(s) and Denies weakness Psych Reports no additional complaints Endo Denies fatigue, Denies polydipsia, Denies polyuria and Denies palpitations Physical exam (Primary Care) Vital Signs: Last Vital Signs Pulse 61 12/11/22 11:51 BP 130/80 12/11/22 11:51 Pulse Ox 100 12/11/22 11:51 Oxygen Delivery Method Room Air 12/11/22 11:51 BMI result Body Mass Index 24.0 Tobacco/Smoking Status: Tobacco use Status Tobacco use date assessed 12/11/22 12/11/22 11:55 Patient Tobacco Use Status Current everyday Tobacco 12/11/22 11:45 e-Cigarette/Vaping Use Never Used 12/11/22 11:45 PHQ-9: PHQ-9 Score PHQ-9: Total score 0 12/11/22 12:46 Depression Screening Interpretation: Negative Thrive Assessment: Date of Thrive Assessment Date Thrive assessed 07/12/22 12/11/22 11:45 Const Other: Alert oriented x3 no acute distress noted ambulatory normal gait Orientation/consciousness: patient oriented x3 HENMT Other: Normocephalic atraumatic, no nasal drainage, moist oral mucosa Eyes General: appearance normal, both eyes and all related structures Neck Other: Neck is supple with no lymphadenopathy palpated, thyroid gland nonpalpable Resp Other: Clear to auscultation bilaterally Cardio Other: S1-S2 present regular rate and rhythm GI Other: Normal bowel sounds, soft, nontender, no mass palpated Neuro General: patient oriented x3, gait normal, moves all extremities, Normal light touch and pain sensation and no focal motor deficits Extrem General: Yes full ROM, Yes no joint enlargement, Yes no pedal edema, Yes no calf tenderness and Yes normal gait Psych Appearance: grossly normal and well kempt Mental Status: mental status grossly normal Speech and movement: Normal speech and movement present Affect: normal affect Attitude: cooperative Thought process: Normal thought process present Results Reviewed Results Reviewed: SPEC : [id number] ÁNGEL: 11/15/22 STATUS: COMP REQ : [id number] RECD: 11/15/[address]: Ijeoma Toledo MD COMP: 11/15/22-1212 ENTERED: 11/15/22-[address]: ORDERED: Met Prof Fast, AST, ALT, Lipid Panel, Vitamin D 25-OH Test Result Flag Reference Sodium 143 135-145 mmol/L Potassium 4.3 3.3-5.1 mmol/L CL 107 96-108 mmol/L CO2 29 22-29 mmol/L Gap 11 L 12-20 BUN 19 H 9-16 mg/dL Creat 0.77 0.5-1.4 mg/dL EGFR > 60 NOTE: For -[place] individuals, multiply the result by 1.210. Chronic Kidney Disease: Estimated GFR < 60 mL/min/1.73m2 Severe Kidney Disease: Estimated GFR < 15 mL/min/1.73m2 FBS 108 H 60-99 mg/dL A fasting glucose from 100-125 mg/dl is considered impaired (pre-diabetes). CA 10.0 8.4-10.2 mg/dL AST (GOT) 20 5-31 U/L ALT (GPT) 15 0-31 U/L Triglyceride 79 mg/dL Desirable Triglyceride: less than 150 mg/dL Borderline High Triglyceride 150-199 mg/dL High Triglyceride: 200-499 mg/dL Very High Triglyceride: greater than or equal to 5OO mg/dL Chol 209 mg/dL Desirable Cholesterol: less than 200 mg/dL Borderline High Cholesterol: 200-239 mg/dL High Cholesterol: greater than 239 mg/dL LDL Calculated 127 mg/dl Desirable LDL: less than 100 mg/dL Near Optimal/Above Optimal LDL: 110-129 mg/dL Borderline High LDL: 130-159 mg/dL High LDL: 160-189 mg/dL Very High LDL: greater than or equal to 190 mg/dL HDL 67 mg/dL Desirable HDL: greater than 40 mg/dL Note: This HDL assay may give artificially low results in patients with liver disease. Vit D 25-OH Tot 56.8 >30 ng/mL Health Based Reference Values* < 20 ng/mL Deficient 20-30 ng/mL Insufficient > 30 ng/mL Sufficient Assessment and Plan Assessment & Plan (1) Essential hypertension: Code(s): I10 - Essential (primary) hypertension Plan: Blood pressure at goal of less than 130/80. Continue with current medication. Reinforced importance of following a low sodium diet, getting regular exercise, and lowering stress levels. (2) Dyslipidemia: Code(s): E78.5 - Hyperlipidemia, unspecified Plan: Reviewed recent fasting lipid profile with patient with levels within normal limits . Continue with current dose of pravastatin , in addition to adherence to low-cholesterol diet and regular exercise, at least 30 minutes 3 to 4 times a week. Advised patient to make healthy food choices, eat more fruits, vegetables, whole grains, wild caught fish and low-fat dairy. Limit amount of meat and fried or fatty food products, as well as processed foods and fast foods. Follow-up scheduled with repeat fasting lipid panel in 6 months. (3) Impaired fasting glucose: Code(s): R73.01 - Impaired fasting glucose Plan: Discussed results of recent labs, which showed mildly elevated fasting glucose. L. Impaired glucose metabolism O2 at risk for developing diabetes mellitus type 2, as well as heart attack and stroke later on. Lifestyle changes at just weight loss, healthy eating habits, and regular exercise are important, and can prevent the progression to diabetes (4) Generalized anxiety disorder: Code(s): F41.1 - Generalized anxiety disorder Plan: Takes lorazepam as needed for acute anxiety attacks (5) Postmenopausal atrophic vaginitis: Code(s): N95.2 - Postmenopausal atrophic vaginitis Plan: Currently on Estrace cream applied vaginally 3 times a week Orders: Orders Alanine Aminotransferase 12/11/22 R73.01 - Impaired fasting glucose, I10 - Essential (primary) hypertension, E78.5 - Hyperlipidemia, unspecified, F41.1 - Generalized anxiety disorder Lipid Panel 12/11/22 R73.01 - Impaired fasting glucose, I10 - Essential (primary) hypertension, E78.5 - Hyperlipidemia, unspecified, F41.1 - Generalized anxiety disorder Hemoglobin A1c 12/11/22 R73.01 - Impaired fasting glucose, I10 - Essential (primary) hypertension, E78.5 - Hyperlipidemia, unspecified, F41.1 - Generalized anxiety disorder Aspartate Amino Transferase 12/11/22 R73.01 - Impaired fasting glucose, I10 - Essential (primary) hypertension, E78.5 - Hyperlipidemia, unspecified, F41.1 - Generalized anxiety disorder Basic Metabolic Panel Fasting 12/11/22 R73.01 - Impaired fasting glucose, I10 - Essential (primary) hypertension, E78.5 - Hyperlipidemia, unspecified, F41.1 - Generalized anxiety disorder Medications: New estradiol 0.01%(0.1mg/gram) (Estrace) 1 g vaginal 3XW 42.5 grams 0RF N95.2 - Postmenopausal atrophic vaginitis Coding Level of Care Code Est Pt Level 4 (85572) Diagnoses Essential hypertension I10 Dyslipidemia E78.5 Impaired fasting glucose R73.01 Generalized anxiety disorder F41.1 Postmenopausal atrophic vaginitis N95.2 Additional Codes KALINA-7 Assessment Billing - KALINA-7 Assessment Tool: KALINA-7 Assessment 08231 ([id number])
[2022-12-11 11:51] VITALS: BP 130/80; PULSE 61; O2SAT 100; BMI 24.0
== END 2022-12-11 14:15 | disposition home or self-care (01) ==
PROVIDERS: Visit Provider Internal Medicine
DX: I10 Essential (primary) hypertension (principal); E78.5 Hyperlipidemia, unspecified; R73.01 Impaired fasting glucose; F41.1 Generalized anxiety disorder; N95.2 Postmenopausal atrophic vaginitis
CPT/HCPCS: 99214

== ENCOUNTER 2023-07-11 10:31 | Outpatient (REF) | payer MEDICARE, SELFPAY ==
[2023-07-11 13:49] LABS: Alanine Aminotransferase 20 U/L (0-31); Anion Gap 13 (12-20); Aspartate Amino Transferase 20 U/L (5-31); Blood Urea Nitrogen 18 mg/dL (9-16); Calcium 9.8 mg/dL (8.4-10.2); Carbon Dioxide 29 mmol/L (22-29); Chloride 104 mmol/L (96-108); Cholesterol 190 mg/dL (<200); Estimated Glomerular Filt Rate > 60; Glucose Fasting 105 mg/dL (60-99); HDL Cholesterol 63 mg/dL (>40); LDL Cholesterol Calculated 113 mg/dL (<100); Potassium 3.7 mmol/L (3.3-5.1); Sodium 142 mmol/L (135-145); Triglycerides 73 mg/dL (<150)
[2023-07-11 13:59] LABS: Estimated Average Glucose 103 mg/dL; Hemoglobin A1c % 5.2 % (<6.0)
== END 2023-07-11 10:32 | disposition home or self-care (01) ==
LOC: HO.HMGCLDS 10:31
PROVIDERS: PCP Internal Medicine; Visit Provider Internal Medicine
DX: R73.01 Impaired fasting glucose (principal); I10 Essential (primary) hypertension; E78.5 Hyperlipidemia, unspecified; F41.1 Generalized anxiety disorder
CPT/HCPCS: 36415; 80048; 80061; 83036; 84450; 84460

== ENCOUNTER 2023-12-30 10:24 | Outpatient (REF) | payer MEDICARE, SELFPAY ==
[2023-12-30 15:16] LABS: Alanine Aminotransferase 22 U/L (0-31); Anion Gap 12 (12-20); Aspartate Amino Transferase 23 U/L (5-31); Blood Urea Nitrogen 18 mg/dL (9-16); Calcium 9.9 mg/dL (8.4-10.2); Carbon Dioxide 27 mmol/L (22-29); Chloride 107 mmol/L (96-108); Cholesterol 180 mg/dL (<200); Estimated Glomerular Filt Rate > 60; Glucose Fasting 108 mg/dL (60-99); HDL Cholesterol 59 mg/dL (>40); LDL Cholesterol Calculated 108 mg/dL (<100); Potassium 4.1 mmol/L (3.3-5.1); Sodium 142 mmol/L (135-145); Triglycerides 68 mg/dL (<150)
[2023-12-30 15:17] LABS: Vitamin D 25-OH Total 78.7 ng/mL (>30)
[2023-12-30 15:22] LABS: Folate 10.7 ng/mL (> or = 4.0); Vitamin B12 739 pg/mL (200-900)
== END 2023-12-30 10:25 | disposition home or self-care (01) ==
LOC: HO.HMGCLDS 10:24
PROVIDERS: PCP Internal Medicine; Visit Provider Internal Medicine
DX: R73.01 Impaired fasting glucose (principal); M85.852 Other specified disorders of bone density and structure, left thigh; I10 Essential (primary) hypertension; E78.5 Hyperlipidemia, unspecified
CPT/HCPCS: 36415; 80048; 80061; 82306; 82607; 82746; 84450; 84460

== ENCOUNTER 2024-01-01 13:14 | Outpatient (AMB) | payer MEDICARE, SELFPAY ==
--- NOTE | 2024-01-01 13:19 | MHC.PC.OV ---
Vital Signs 01/01/24 13:35 Height 5 ft 5 in Weight 147 lb BMI 24.5 BP 130/80 Blood Pressure Location Rt brachial Position Sitting Pulse 68 Pulse Source Pulse Oximeter Pulse Oximetry (%) 99 Oxygen Delivery Method Room Air Intake Visit Reasons: Follow up Intake Note: Pt is here today for a f/u labs Allergies ranitidine [Zantac] Allergy (Unknown, Verified 01/01/24 13:53) fever and rash lisinopril Adverse Reaction (Unknown, Verified 01/01/24 13:53) dry cough famotidine [From Pepcid] Adverse Reaction (Verified 01/01/24 13:53) elevates BP Medication List - Last Reconciled 01/01/24 by Ijeoma Toledo MD cholecalciferol (vitamin D3) 50 mcg PO DAILY cyanocobalamin (vitamin B-12) 1,000 mcg PO DAILY estradiol 0.01%(0.1mg/gram) (Estrace) 1 g vaginal 3XW fluticasone propionate 50 mcg/actuation 1 spray intranasal DAILY PRN hydrochlorothiazide 12.5 mg PO QAM hydrocortisone 2.5% 1 appl [place] BID PRN lorazepam 1 mg PO DAILY PRN pravastatin 20 mg PO DAILY Tobacco use date assessed: 01/01/24 Last assessed Fall Risk: 01/01/24 Dental Screening Dental Screen Date: 01/01/24 HPI Follow up HPI Details 83 year-old lady with postmenopausal atrophic vaginitis, currently on Estrace, vaca anxiety disorder, takes lorazepam as needed, hyperlipidemia and hypertension, here for follow-up Has been compliant with taking her medications, with following recommended diet and stays active. Has been feeling well with no complaints at present time, blood pressure within normal limits. [facility] Medical History Postmenopausal atrophic vaginitis History of compression fracture of spine Impaired fasting glucose Frontal fibrosing alopecia Hx of basal cell carcinoma External hemorrhoids Basal cell carcinoma (BCC) of upper extremity Smoker unmotivated to quit COPD (chronic obstructive pulmonary disease) Lumbar compression fracture Osteopenia of left femoral neck Essential hypertension Dyslipidemia Generalized anxiety disorder Surgical History History of ganglion cyst H/O left breast biopsy History of tonsillectomy History of colonoscopy Family History Father No problems noted. Mother No problems noted. Sister No problems noted. Sister Breast cancer Endometrial cancer Daughter No problems noted. Daughter No problems noted. Social History Housing: House Alcohol intake: current Patient Tobacco Use Status: Current everyday Tobacco user Cigarette Packs Per Day: 0 Cigarettes Per Day: 15 Years Smoked: 68 e-Cigarette/Vaping Use: Never Used service: No Current occupational status: retired Cognitive needs: No Hearing needs: No Vision needs: Yes Questionnaire PHQ-9 Over the last 2 weeks, how often have you been bothered by any of the following problems? 1. Little interest or pleasure in doing things: not at all 2. Feeling down, depressed, or hopeless: not at all 3. Trouble falling or staying asleep, or sleeping too much: not at all 4. Feeling tired or having little energy: not at all 5. Poor appetite or overeating: not at all 6. Feeling bad about yourself - or that you are a failure or have let yourself or your family down: not at all 7. Trouble concentrating on things, such as reading the newspaper or watching television: not at all 8. Moving or speaking so slowly that other people could have noticed. Or the opposite - being so fidgety or restless that you have been moving around a lot more than usual: not at all 9. Thoughts that you would be better off or of hurting yourself in some way: not at all Total score: 0 Depression Screening Interpretation: Negative Depression Screening Done: Yes 62666 - PHQ-9 Billing: Yes Source: Developed by Drs. Ronny England, Yesy Garcia, Feliz Garay and colleagues, with an educational orly from [employer]. Thrive Questionnaire Date Thrive assessed: 01/01/24 I am a: Patient What is your living situation today?: I have a steady place to live Within the past 12 months, did the food you bought not last and you didn't have the money to get more?: Never true Within the past 12 months, did you worry whether your food would run out before you got money to buy more?: Never true Do you have trouble paying for medicines?: No Do you have trouble getting transportation to medical appointments?: No Do you have trouble paying your heating and electricity bill?: No Do you have trouble taking care of your child, family member or friend?: No Do you have trouble with day-to-day activities such as bathing, preparing meals, shopping, managing finances, etc.?: No Are you currently unemployed and looking for a job?: No Are you interested in more education?: No THRIVE Score: 0 AUDIT C Alcohol Use Questionnaire (AUDIT-C) 1. How often do you have a drink containing alcohol?: 2-3 times a week 2. How many drinks containing alcohol do you have on a typical day when you are drinking?: 1 or 2 3. How often do you have six or more drinks on one occasion?: Never Total Score: 3 KALINA-7 AMB Questionnaire KALINA-7 Date KALINA - 7 assessed: 01/01/24 Feeling nervous, anxious, or on edge: 0 = Not at all Not being able to stop or control worryin = Not at all Worrying too much about different things: 0 = Not at all Trouble relaxin = Not at all Being so restless that it is hard to sit still: 0 = Not at all Becoming easily annoyed or irritable: 0 = Not at all Feeling afraid as if something awful might happen: 0 = Not at all Total KALINA-7 score (0-4 normal; 5-9 mild; 10-14 moderate; 15-21 severe): 0 Source: Developed by Drs. Ronny England, Yesy Garcia, Feliz Garay and colleagues, with an educational orly from [employer]. KALINA-7 Assessment Billing KALINA-7 Assessment Tool: KALINA-7 Assessment 99457 Review of Systems Const Denies body aches, Denies fatigue, Denies fever(s), Denies headache(s) and Denies weakness ENT Denies dizziness, Denies headache(s), Denies nasal congestion and Denies nasal discharge Card Denies chest pain, Denies lightheadedness, Denies palpitations and Denies dyspnea Resp Denies chest congestion, Denies cough and Denies dyspnea GI Denies abdominal pain, Denies change in bowel habits and Denies heartburn Denies urinary frequency, Denies dysuria and Denies urinary urgency Musc Reports no additional complaints Neuro Denies dizziness, Denies headache(s) and Denies weakness Psych Reports no additional complaints Endo Denies fatigue, Denies polydipsia, Denies polyuria and Denies palpitations Carlyle/Lymph Reports no additional complaints Physical exam (Primary Care) Vital Signs: Last Vital Signs Pulse 68 01/01/24 13:35 BP 130/80 01/01/24 13:35 Pulse Ox 99 01/01/24 13:35 Oxygen Delivery Method Room Air 01/01/24 13:35 BMI result Body Mass Index 24.5 Tobacco/Smoking Status: Tobacco use Status Tobacco use date assessed 01/01/24 01/01/24 13:20 Patient Tobacco Use Status Current everyday Tobacco 01/01/24 13:20 e-Cigarette/Vaping Use Never Used 01/01/24 13:20 PHQ-9: PHQ-9 Score PHQ-9: Total score 0 01/01/24 13:55 Depression Screening Interpretation: Negative Thrive Assessment: Date of Thrive Assessment Date Thrive assessed 01/01/24 01/01/24 13:40 Const Other: Alert oriented x3 no acute distress noted ambulatory normal gait Orientation/consciousness: patient oriented x3 HENMT Other: Normocephalic atraumatic, no nasal drainage, moist oral mucosa Eyes General: appearance normal, both eyes and all related structures Neck Other: Neck is supple with no lymphadenopathy palpated, thyroid gland nonpalpable Resp Other: Clear to auscultation bilaterally Cardio Other: S1-S2 present regular rate and rhythm GI Other: Normal bowel sounds, soft, nontender, no mass palpated Neuro General: patient oriented x3, gait normal, moves all extremities, Normal light touch and pain sensation and no focal motor deficits Extrem General: Yes full ROM, Yes no joint enlargement, Yes no pedal edema, Yes no calf tenderness and Yes normal gait Psych Appearance: grossly normal and well kempt Mental Status: mental status grossly normal Speech and movement: Normal speech and movement present Affect: normal affect Attitude: cooperative Thought process: Normal thought process present Results Reviewed Results Reviewed: Name: Chanelle Dawn Age/Sex: 83/F : 1940 Unit#: [id number] Attend Dr: Ijeoma Toledo MD Re12/30/23 Status: DEP REF Location: [facility] Disch: SPEC : [id number] ÁNGEL: 12/30/23 STATUS: COMP REQ : [id number] RECD: 12/30/23-[address]: Ijeoma Toledo MD COMP: 12/30/23-1516 ENTERED: 12/30/23-[address]: ORDERED: Met Prof Fast, AST, ALT, Lipid Panel, Vitamin D 25-OH Test Result Flag Reference Sodium 142 135-145 mmol/L Potassium 4.1 3.3-5.1 mmol/L CL 107 96-108 mmol/L CO2 27 22-29 mmol/L Gap 12 12-20 BUN 18 H 9-16 mg/dL Creat 0.84 0.5-1.4 mg/dL EGFR > 60 NOTE: For -Indian individuals, multiply the result by 1.210. Chronic Kidney Disease: Estimated GFR < 60 mL/min/1.73m2 Severe Kidney Disease: Estimated GFR < 15 mL/min/1.73m2 FBS 108 H 60-99 mg/dL A fasting glucose from 100-125 mg/dl is considered impaired (pre-diabetes). CA 9.9 8.4-10.2 mg/dL AST (GOT) 23 5-31 U/L ALT (GPT) 22 0-31 U/L Triglyceride 68 <150 mg/dL Desirable Triglyceride: less than 150 mg/dL Borderline High Triglyceride 150-199 mg/dL High Triglyceride: 200-499 mg/dL Very High Triglyceride: greater than or equal to 5OO mg/dL Cholesterol 180 <200 mg/dL Desirable Cholesterol: less than 200 mg/dL Borderline High Cholesterol: 200-239 mg/dL High Cholesterol: greater than 239 mg/dL LDL Calculated 108 H <100 mg/dL Desirable LDL: less than 100 mg/dL Near Optimal/Above Optimal LDL: 110-129 mg/dL Borderline High LDL: 130-159 mg/dL High LDL: 160-189 mg/dL Very High LDL: greater than or equal to 190 mg/dL HDL 59 >40 mg/dL Desirable HDL: greater than 40 mg/dL Note: This HDL assay may give artificially low results in patients with liver disease. Vit D 25-OH Tot 78.7 >30 ng/mL Health Based Reference Values* < 20 ng/mL Deficient 20-30 ng/mL Insufficient > 30 ng/mL Sufficient *Preston CORTEZ. N Engl J Med. 2007;[id number]:266-280 Care must be taken in interpreting Vitamin D results from different laboratories and methodologies. Published data demonstrated that results from patients undergoing hemodialysis may show a negative bias when tested with various automated 25-OH vitamin D assays when compared to LC-MS/MS. When testing samples from patients whose predominant form of Vitamin D is Vitamin D2, such as patients receiving Vitamin D2 supplementation, results that are subtherapeutic should be confirmed with another method such as LC-MS/MS. Assessment and Plan Assessment & Plan (1) Essential hypertension: Code(s): I10 - Essential (primary) hypertension Plan: Blood pressure stable and controlled , continue with hydrochlorothiazide and refill sent, recommended again to cut back or stop smoking altogether. Appearance to healthy eating habits and regular exercise is important to maintain \ blood pressure control (2) Dyslipidemia: Code(s): E78.5 - Hyperlipidemia, unspecified Plan: Fasting labs done today showed fasting lipids within normal limits. Continue pravastatin 20 mg at bedtime , in addition to adherence to low-cholesterol diet and regular exercise, at least 30 minutes 3 to 4 times a week. Advised patient to make healthy food choices, eat more fruits, vegetables, whole grains, wild caught fish and low-fat dairy. Limit amount of meat and fried or fatty food products, as well as processed foods and fast foods. Follow-up scheduled with repeat fasting lipid panel in 5 months. Orders: Orders Vitamin D 25-OH Total 12/30/23 E78.5 - Hyperlipidemia, unspecified, I10 - Essential (primary) hypertension, M85.852 - Other specified disorders of bone density and structure, left thigh, R73.01 - Impaired fasting glucose Lipid Panel 12/30/23 E78.5 - Hyperlipidemia, unspecified, I10 - Essential (primary) hypertension, M85.852 - Other specified disorders of bone density and structure, left thigh, R73.01 - Impaired fasting glucose Basic Metabolic Panel Fasting 12/30/23 E78.5 - Hyperlipidemia, unspecified, I10 - Essential (primary) hypertension, M85.852 - Other specified disorders of bone density and structure, left thigh, R73.01 - Impaired fasting glucose Alanine Aminotransferase 12/30/23 E78.5 - Hyperlipidemia, unspecified, I10 - Essential (primary) hypertension, M85.852 - Other specified disorders of bone density and structure, left thigh, R73.01 - Impaired fasting glucose Aspartate Amino Transferase 12/30/23 E78.5 - Hyperlipidemia, unspecified, I10 - Essential (primary) hypertension, M85.852 - Other specified disorders of bone density and structure, left thigh, R73.01 - Impaired fasting glucose Vitamin B12 and Folate 12/30/23 E78.5 - Hyperlipidemia, unspecified, I10 - Essential (primary) hypertension, M85.852 - Other specified disorders of bone density and structure, left thigh, R73.01 - Impaired fasting glucose Medications: Refilled hydrochlorothiazide 12.5 mg PO QAM 90 caps 1RF Coding Level of Care Code Est Pt Level 4 (04898) Complex EM visit Add On G2211 Diagnoses Essential hypertension I10 Dyslipidemia E78.5 Additional Codes KALINA-7 Assessment Billing - KALINA-7 Assessment Tool: KALINA-7 Assessment 00093 ([id number])
[2024-01-01 13:35] VITALS: BP 130/80; PULSE 68; O2SAT 99; BMI 24.5
== END 2024-01-01 17:21 | disposition home or self-care (01) ==
PROVIDERS: PCP Internal Medicine; Visit Provider Internal Medicine
DX: I10 Essential (primary) hypertension (principal); E78.5 Hyperlipidemia, unspecified
CPT/HCPCS: 99214; G2211

== ENCOUNTER 2024-06-11 10:27 | Outpatient (REF) | payer MEDICARE, SELFPAY ==
[2024-06-11 13:49] LABS: Estimated Average Glucose 108 mg/dL; Hemoglobin A1C 125.8127 umol/L; Hemoglobin A1c % 5.4 % (<6.0); Total Hemoglobin (HGBA1C) 3491.6484 umol/L
[2024-06-11 14:01] LABS: Alanine Aminotransferase 23 U/L (0-31); Anion Gap 12 (12-20); Aspartate Amino Transferase 29 U/L (5-31); Blood Urea Nitrogen 14 mg/dL (9-16); Carbon Dioxide 30 mmol/L (22-29); Chloride 106 mmol/L (96-108); Cholesterol 172 mg/dL (<200); Estimated Glomerular Filt Rate > 60; Glucose Fasting 109 mg/dL (60-99); HDL Cholesterol 59 mg/dL (>40); LDL Cholesterol Calculated 99 mg/dL (<100); Potassium 3.7 mmol/L (3.3-5.1); Sodium 144 mmol/L (135-145); Triglycerides 73 mg/dL (<150)
[2024-06-11 14:19] LABS: Vitamin D 25-OH Total 69.3 ng/mL (>30)
[2024-06-11 14:28] LABS: Folate 12.8 ng/mL (> or = 4.0); Vitamin B12 626 pg/mL (200-900)
== END 2024-06-11 10:28 | disposition home or self-care (01) ==
LOC: HO.HMGCLDS 10:27
PROVIDERS: PCP Internal Medicine; Visit Provider Internal Medicine
DX: N95.2 Postmenopausal atrophic vaginitis (principal); J44.9 Chronic obstructive pulmonary disease, unspecified; M85.852 Other specified disorders of bone density and structure, left thigh; I10 Essential (primary) hypertension; E78.5 Hyperlipidemia, unspecified; F41.1 Generalized anxiety disorder; R73.01 Impaired fasting glucose
CPT/HCPCS: 36415; 80048; 80061; 82306; 82607; 82746; 83036; 84450; 84460

== ENCOUNTER 2024-06-18 11:28 | Outpatient (AMB) | payer MEDICARE, SELFPAY ==
[2024-06-18 11:32] VITALS: BP 135/90; PULSE 69; O2SAT 100; BMI 25.9
--- NOTE | 2024-06-18 11:32 | A.OFFPC_ITS ---
Vital Signs 06/18/24 11:32 Height 5 ft 3 in Weight 146 lb BMI 25.9 BP 135/90 H Blood Pressure Location Rt brachial Position Sitting Pulse 69 Pulse Source Pulse Oximeter Pulse Oximetry (%) 100 Oxygen Delivery Method Room Air Intake Visit Reasons: 6mo. f/u Intake Note: Pt is here today for her 6mo. f/u Allergies ranitidine [Zantac] Allergy (Unknown, Verified 06/18/24 11:45) fever and rash lisinopril Adverse Reaction (Unknown, Verified 06/18/24 11:45) dry cough famotidine [From Pepcid] Adverse Reaction (Verified 06/18/24 11:45) elevates BP Medication List - Last Reconciled 06/18/24 by Ijeoma Toledo MD cholecalciferol (vitamin D3) 50 mcg PO DAILY cyanocobalamin (vitamin B-12) 1,000 mcg PO DAILY fluticasone propionate 50 mcg/actuation 1 spray intranasal DAILY PRN hydrochlorothiazide 12.5 mg PO QAM hydrocortisone 2.5% 1 appl DE BID PRN lorazepam 1 mg PO DAILY PRN pravastatin 20 mg PO DAILY Tobacco use date assessed: 06/18/24 Fall risk assessment: No Falls in past year Last assessed Fall Risk: 06/18/24 Dental Screening Dental Screen Date: 06/18/24 Did you have a dental visit in the last 12 months?: Yes Did you have a dental problem in the last 6 months where you did not have access to dental care?: Yes Was dental information given to patient?: Patient has dentist HPI 6mo. f/u HPI Details 83 year-old lady with postmenopausal atr ophic vaginitis, not taking Estrace anymore, anxiety disorder, takes lorazepam as needed, hyperlipidemia and hypertension, here for follow-up. She has been taking her medicines as directed, compliant with diet. Has intermittent episodes of low back pain, nonradiating, with no accompanying urinary stool incontinence, no numbness or weakness experience in extremities. Has been using a heating pad which affords relief She reports having episodes of the impression low mood. Has had a lot of that is with the family and friends this past year, now helping her daughter take care of her who has all her medical issues. She takes lorazepam as needed which helps temporarily but does not want to see a therapist, nor does she want to start any medications at present time. She states that she has lot family around her who she can talk to [facility] Medical History Postmenopausal atrophic vaginitis History of compression fracture of spine Impaired fasting glucose Hx of basal cell carcinoma External hemorrhoids Smoker unmotivated to quit COPD (chronic obstructive pulmonary disease) Lumbar compression fracture Osteopenia of left femoral neck Essential hypertension Dyslipidemia Generalized anxiety disorder Surgical History History of ganglion cyst H/O left breast biopsy History of tonsillectomy History of colonoscopy Family History Father No problems noted. Mother No problems noted. Sister No problems noted. Sister Breast cancer Endometrial cancer Daughter No problems noted. Daughter No problems noted. Social History Housing: House Alcohol intake: current Patient Tobacco Use Status: Current everyday Tobacco user Cigarette Packs Per Day: 0 Cigarettes Per Day: 15 Years Smoked: 68 e-Cigarette/Vaping Use: Never Used service: No Current occupational status: retired Cognitive needs: No Hearing needs: No Vision needs: Yes Questionnaire PHQ-9 Over the last 2 weeks, how often have you been bothered by any of the following problems? 1. Little interest or pleasure in doing things: several days 2. Feeling down, depressed, or hopeless: several days 3. Trouble falling or staying asleep, or sleeping too much: several days 4. Feeling tired or having little energy: several days 5. Poor appetite or overeating: not at all 6. Feeling bad about yourself - or that you are a failure or have let yourself or your family down: not at all 7. Trouble concentrating on things, such as reading the newspaper or watching television: not at all 8. Moving or speaking so slowly that other people could have noticed. Or the opposite - being so fidgety or restless that you have been moving around a lot more than usual: not at all 9. Thoughts that you would be better off or of hurting yourself in some way: not at all Total score: 4 Depression Screening Interpretation: Positive Depression Screening Follow-up: Declines treatment Depression Screening Done: Yes 72133 - PHQ-9 Billing: Yes Source: Developed by Yesy Davis Kurt Kroenke and colleagues, with an educational orly from [employer]. Thrive Questionnaire Date Thrive assessed: 01/01/24 I am a: Patient What is your living situation today?: I have a steady place to live Within the past 12 months, did the food you bought not last and you didn't have the money to get more?: Never true Within the past 12 months, did you worry whether your food would run out before you got money to buy more?: Never true Do you have trouble paying for medicines?: No Do you have trouble getting transportation to medical appointments?: No Do you have trouble paying your heating and electricity bill?: No Do you have trouble taking care of your child, family member or friend?: No Do you have trouble with day-to-day activities such as bathing, preparing meals, shopping, managing finances, etc.?: No Are you currently unemployed and looking for a job?: No Are you interested in more education?: No Please select the resources that you would like help with: None Currently or been in a relationship where the following occur: No concerns reported THRIVE Score: 0 AUDIT C Alcohol Use Questionnaire (AUDIT-C) 1. How often do you have a drink containing alcohol?: Never Total Score: 0 KALINA-7 AMB Questionnaire KALINA-7 Date KALINA - 7 assessed: 06/18/24 Feeling nervous, anxious, or on edge: 1 = Several days Not being able to stop or control worryin = Several days Worrying too much about different things: 1 = Several days Trouble relaxin = Not at all Being so restless that it is hard to sit still: 1 = Several days Becoming easily annoyed or irritable: 0 = Not at all Feeling afraid as if something awful might happen: 1 = Several days Total KALINA-7 score (0-4 normal; 5-9 mild; 10-14 moderate; 15-21 severe): 5 Source: Developed by Yesy Davis Kurt Kroenke and colleagues, with an educational orly from [employer]. KALINA-7 Assessment Billing KALINA-7 Assessment Tool: KALINA-7 Assessment 13416 Review of Systems Const Denies fatigue, Denies fever(s), Denies headache(s) and Denies weakness ENT Denies dizziness, Denies headache(s), Denies nasal congestion and Denies nasal discharge Card Denies chest pain, Denies lightheadedness, Denies palpitations and Denies dyspnea Resp Denies chest congestion, Denies cough and Denies dyspnea GI Denies abdominal pain, Denies change in bowel habits and Denies heartburn Denies urinary frequency, Denies dysuria and Denies urinary urgency Musc Details: Occasional pain stiffness in lower back Neuro Denies dizziness, Denies headache(s) and Denies weakness Psych Reports no additional complaints Endo Denies fatigue, Denies polydipsia, Denies polyuria and Denies palpitations Carlyle/Lymph Reports no additional complaints Physical exam (Primary Care) Vital Signs: Last Vital Signs Pulse 69 06/18/24 11:32 BP 135/90 H 06/18/24 11:32 Pulse Ox 100 06/18/24 11:32 Oxygen Delivery Method Room Air 06/18/24 11:32 BMI result Body Mass Index 25.9 Tobacco/Smoking Status: Tobacco use Status Tobacco use date assessed 06/18/24 06/18/24 11:33 Patient Tobacco Use Status Current everyday Tobacco 06/18/24 11:33 e-Cigarette/Vaping Use Never Used 06/18/24 11:33 PHQ-9: PHQ-9 Score PHQ-9: Total score 4 06/18/24 13:14 Depression Screening Interpretation: Positive Depression Screening Follow-up: Declines treatment Thrive Assessment: Date of Thrive Assessment Date Thrive assessed 01/01/24 06/18/24 11:33 Currently or been in a relationship where the following occur: No concerns reported Const Other: Alert oriented x3 no acute distress noted ambulatory normal gait Orientation/consciousness: patient oriented x3 HENMT Other: Normocephalic atraumatic, no nasal drainage, moist oral mucosa Eyes General: appearance normal, both eyes and all related structures Neck Other: Neck is supple with no lymphadenopathy palpated, thyroid gland nonpalpable Resp Other: Clear to auscultation bilaterally Cardio Other: S1-S2 present regular rate and rhythm GI Other: Normal bowel sounds, soft, nontender, no mass palpated Back/Spine/Pelvis Other: Positive kyphosis Thoracic/Lumbar Spine: straight leg raise negative bilaterally and paraspinal muscle tenderness bilaterally in the lower lumbar Neuro General: patient oriented x3, gait normal, moves all extremities, Normal light t ouch and pain sensation and no focal motor deficits Extrem General: Yes full ROM, Yes no joint enlargement, Yes no pedal edema, Yes no calf tenderness and Yes normal gait Psych Appearance: grossly normal and well kempt Mental Status: mental status grossly normal Speech and movement: Normal speech and movement present Affect: normal affect Attitude: cooperative Thought process: Normal thought process present Results Reviewed Results Reviewed: Name: Chanelle aDwn Age/Sex: 83/F : 1940 Unit#: [id number] Attend Dr: Ijeoma Toledo MD Re06/11/24 Status: DEP REF Location: [facility] Disch: SPEC : [id number] ÁNGEL: 06/11/24 STATUS: COMP REQ : [id number] RECD: 06/11/24-[address]: Ijeoma Toledo MD COMP: 06/11/24-1418 ENTERED: 06/11/24-[address]: ORDERED: Met Prof Fast, AST, ALT, Lipid Panel, Vitamin D 25-OH Test Result Flag Reference Sodium 144 135-145 mmol/L Potassium 3.7 3.3-5.1 mmol/L CL 106 96-108 mmol/L CO2 30 H 22-29 mmol/L Gap 12 12-20 BUN 14 9-16 mg/dL Creat 0.79 0.5-1.4 mg/dL eGFR > 60 Chronic Kidney Disease: Estimated GFR < 60 mL/min/1.73m2 Severe Kidney Disease: Estimated GFR < 15 mL/min/1.73m2 FBS 109 H 60-99 mg/dL A fasting glucose from 100-125 mg/dl is considered impaired (pre-diabetes). CA 10.0 8.4-10.2 mg/dL AST (GOT) 29 5-31 U/L ALT (GPT) 23 0-31 U/L Triglyceride 73 <150 mg/dL Desirable Triglyceride: less than 150 mg/dL Borderline High Triglyceride 150-199 mg/dL High Triglyceride: 200-499 mg/dL Very High Triglyceride: greater than or equal to 5OO mg/dL Cholesterol 172 <200 mg/dL Desirable Cholesterol: less than 200 mg/dL Borderline High Cholesterol: 200-239 mg/dL High Cholesterol: greater than 239 mg/dL LDL Calculated 99 <100 mg/dL Desirable LDL: less than 100 mg/dL Near Optimal/Above Optimal LDL: 110-129 mg/dL Borderline High LDL: 130-159 mg/dL High LDL: 160-189 mg/dL Very High LDL: greater than or equal to 190 mg/dL HDL 59 >40 mg/dL Desirable HDL: greater than 40 mg/dL Note: This HDL assay may give artificially low results in patients with liver disease. Vit D 25-OH Tot 69.3 >30 ng/mL Health Based Reference Values* < 20 ng/mL Deficient 20-30 ng/mL Insufficient > 30 ng/mL Sufficient *Preston CORTEZ. N Engl J Med. 2007;357:266-280 Care must be taken in interpreting Vitamin D results from different laboratories and methodologies. Published data demonstrated that results from patients undergoing hemodialysis may show a negative bias when tested with various automated 25-OH vitamin D assays when compared to Coding Level of Care Code Est Pt Level 4 (23474) Complex EM visit Add On G2211 Diagnoses Generalized anxiety disorder F41.1 Dyslipidemia E78.5 Essential hypertension I10 Osteopenia of left femoral neck M85.852 Additional Codes KALINA-7 Assessment Billing - KALINA-7 Assessment Tool: KALINA-7 Assessment 75478 ([id number]) PHQ-9 - 74171 - PHQ-9 Billing: Yes ([id number]) Assessment & Plan Assessment & Plan (1) Generalized anxiety disorder: Code(s): F41.1 - Generalized anxiety disorder Category: Medical Plan: Patient declines seeing a therapist, states she has tried it in the past several times which has not helped, not want to start any medication at present time, states that she has family around who has been helping her. Takes lorazepam only as needed for acute anxiety attacks. (2) Dyslipidemia: Code(s): E78.5 - Hyperlipidemia, unspecified Category: Medical Plan: Reviewed recent fasting lipid profile with patient with levels within normal limit . Continue pravastatin 20 mg daily at night , in addition to adherence to low-cholesterol diet and regular exercise, at least 30 minutes 3 to 4 times a week. Advised patient to make healthy food choices, eat more fruits, vegetables, whole grains, wild caught fish and low-fat dairy. Limit amount of meat and fried or fatty food products, as well as processed foods and fast foods. Follow-up scheduled with repeat fasting lipid panel in 5 months. (3) Essential hypertension: Code(s): I10 - Essential (primary) hypertension Category: Medical Plan: Blood pressure at goal of less than 130/80. Continue with current medication. Reinforced importance of following a low sodium diet, getting regular exercise, and lowering stress levels. (4) Osteopenia of left femoral neck: Code(s): M85.852 - Other specified disorders of bone density and structure, left thigh Category: Medical Plan: Reviewed recent bone density scan results with patient done earlier this year. Continue with doing regular weight-bearing exercise, continue taking vitamin-D 3 supplements at least 2000 units daily and take adequate calcium from dietary sources. Repeat another bone density scan in 2025 Orders: Orders Aspartate Amino Transferase 10/22/24 E78.5 - Hyperlipidemia, unspecified, F41.1 - Generalized anxiety disorder, I10 - Essential (primary) hypertension, M85.852 - Other specified disorders of bone density and structure, left thigh, N95.2 - Postmenopausal atrophic vaginitis, Z87.81 - Personal history of (healed) traumatic fracture Alanine Aminotransferase 10/22/24 E78.5 - Hyperlipidemia, unspecified, F41.1 - Generalized anxiety disorder, I10 - Essential (primary) hypertension, M85.852 - Other specified disorders of bone density and structure, left thigh, N95.2 - Postmenopausal atrophic vaginitis, Z87.81 - Personal history of (healed) traumatic fracture Vitamin D 25-OH Total 10/22/24 E78.5 - Hyperlipidemia, unspecified, F41.1 - Generalized anxiety disorder, I10 - Essential (primary) hypertension, M85.852 - Other specified disorders of bone density and structure, left thigh, N95.2 - Postmenopausal atrophic vaginitis, Z87.81 - Personal history of (healed) traumatic fracture Basic Metabolic Panel Fasting 10/22/24 E78.5 - Hyperlipidemia, unspecified, F41.1 - Generalized anxiety disorder, I10 - Essential (primary) hypertension, M85.852 - Other specified disorders of bone density and structure, left thigh, N95.2 - Postmenopausal atrophic vaginitis, Z87.81 - Personal history of (healed) traumatic fracture Lipid Panel 10/22/24 E78.5 - Hyperlipidemia, unspecified, F41.1 - Generalized anxiety disorder, I10 - Essential (primary) hypertension, M85.852 - Other specified disorders of bone density and structure, left thigh, N95.2 - Postmenopausal atrophic vaginitis, Z87.81 - Personal history of (healed) traumatic fracture Vitamin B12 and Folate 10/22/24 E78.5 - Hyperlipidemia, unspecified, F41.1 - Generalized anxiety disorder, I10 - Essential (primary) hypertension, M85.852 - Other specified disorders of bone density and structure, left thigh, N95.2 - Pos tmenopausal atrophic vaginitis, Z87.81 - Personal history of (healed) traumatic fracture
== END 2024-06-18 12:07 | disposition home or self-care (01) ==
PROVIDERS: PCP Internal Medicine; Visit Provider Internal Medicine
DX: F41.1 Generalized anxiety disorder (principal); E78.5 Hyperlipidemia, unspecified; I10 Essential (primary) hypertension; M85.852 Other specified disorders of bone density and structure, left thigh

== ENCOUNTER → 2024-06-18 11:28 | Outpatient (BNVA) | payer MEDICARE, SELFPAY | PROVIDERS: PCP Internal Medicine; Visit Provider Internal Medicine | DX: E78.5 Hyperlipidemia, unspecified (principal); I10 Essential (primary) hypertension; F17.210 Nicotine dependence, cigarettes, uncomplicated; F41.1 Generalized anxiety disorder; M85.852 Other specified disorders of bone density and structure, left thigh; N95.2 Postmenopausal atrophic vaginitis; Z87.81 Personal history of (healed) traumatic fracture | CPT/HCPCS: 96127; 99212 ==

== ENCOUNTER 2024-06-25 09:51 | Outpatient (REF) | payer MEDICARE, SELFPAY ==
--- NOTE | ~2024-06-25 | XR_ITS ---
EXAMINATION: XR LUMBOSACRAL SPINE CLINICAL INFORMATION: M54.50 - Low back pain, unspecified COMPARISON: [place] lumbar spine 03/20/2022 TECHNIQUE: Three views of the lumbosacral spine. FINDINGS: There is maintained lumbar lordosis. There is loss of vertebral heights throughout lumbar spine and T12 vertebra The alignment is normal. There is mild loss of L2-3 and L5-S1 disc heights. No aggressive lytic or sclerotic process seen. There is sclerotic superiorly changes at L2 and L3 vertebra. There is mild dextro mid lumbar spine. There is bilateral facet joint arthropathy. SI joints are symmetric and normal. XR/XR lumbar spine 2-3V IMPRESSION: Mild compression deformities old at all lumbar vertebral levels. There is mild dextroscoliosis unchanged to the lumbar spine MRI. There is moderate facet joint arthropathy and spondylosis throughout. Electronically signed by: Sreedhar Suarez MD 06/25/2024 10:22 AM [facility] [place]
== END 2024-06-25 09:52 | disposition home or self-care (01) ==
LOC: HO.HMGCX 09:51
PROVIDERS: PCP Internal Medicine; Visit Provider Internal Medicine
DX: M54.50 Low back pain, unspecified (principal)
CPT/HCPCS: 72100

== ENCOUNTER → 2024-06-25 09:54 | Outpatient (BNV) | payer MEDICARE, SELFPAY | PROVIDERS: PCP Internal Medicine; Visit Provider Radiology Diagnostic Radiology | DX: M54.50 Low back pain, unspecified (principal) | CPT/HCPCS: 72100 ==

== ENCOUNTER 2024-10-15 10:26 | Outpatient (REF) | payer MEDICARE, SELFPAY ==
[2024-10-15 13:14] LABS: Appearance Urine Cloudy; Color Urine Yellow; Glucose Urine UA Negative (Negative); Leukocyte Esterase Urine Large (3+) (Negative); Nitrite Urine Positive (Negative); Specific Gravity - Urine 1.015 (1.005-1.025); UMIC TRIGGER UACC YES; Urine Blood Small (1+) (Negative); Urine Ketones Negative (Negative); Urine Protein Negative (Neg-Trace)
[2024-10-15 13:19] LABS: Bacteria Urine 4+ (None Seen); Hyaline Casts Urine 0-2 /LPF (0-2); Squamous Epithelial Cell Urine 0-2 /HPF (0-2); UACC Culture Trigger YES; WBC Urine >50 /HPF (0-5)
[2024-10-15 13:51] LABS: Alanine Aminotransferase 21 U/L (0-31); Anion Gap 12 (12-20); Aspartate Amino Transferase 27 U/L (5-31); Blood Urea Nitrogen 16 mg/dL (9-16); Calcium 9.9 mg/dL (8.4-10.2); Carbon Dioxide 26 mmol/L (22-29); Chloride 106 mmol/L (96-108); Cholesterol 197 mg/dL (<200); Estimated Glomerular Filt Rate > 60; Glucose Fasting 94 mg/dL (60-99); HDL Cholesterol 65 mg/dL (>40); LDL Cholesterol Calculated 117 mg/dL (<100); Sodium 140 mmol/L (135-145); Triglycerides 75 mg/dL (<150)
[2024-10-15 13:59] LABS: Vitamin D 25-OH Total 80.4 ng/mL (>30)
[2024-10-15 14:01] LABS: Folate 10.9 ng/mL (> or = 4.0); Vitamin B12 532 pg/mL (200-900)
== END 2024-10-15 10:27 | disposition home or self-care (01) ==
LOC: HO.HMGCLDS 10:26
PROVIDERS: PCP Internal Medicine; Visit Provider Internal Medicine
DX: N95.2 Postmenopausal atrophic vaginitis (principal); Z87.81 Personal history of (healed) traumatic fracture; I10 Essential (primary) hypertension; E78.5 Hyperlipidemia, unspecified; F41.1 Generalized anxiety disorder; M85.852 Other specified disorders of bone density and structure, left thigh; R35.0 Frequency of micturition
CPT/HCPCS: 36415; 80048; 80061; 81001; 82306; 82607; 82746; 84450; 84460; 87086; 87088; 87186

== ENCOUNTER 2024-10-27 11:46 | Outpatient (AMB) | payer MEDICARE, SELFPAY ==
--- NOTE | 2024-10-27 12:51 | MHC.PC.OV ---
Intake Visit Reasons: 5mo. f/u Allergies ranitidine [Zantac] Allergy (Unknown, Verified 06/18/24 11:45) fever and rash lisinopril Adverse Reaction (Unknown, Verified 06/18/24 11:45) dry cough famotidine [From Pepcid] Adverse Reaction (Verified 06/18/24 11:45) elevates BP Medication List - Last Reconciled 11/07/24 by Ijeoma Toledo MD cholecalciferol (vitamin D3) 50 mcg PO DAILY cyanocobalamin (vitamin B-12) 1,000 mcg PO DAILY fluticasone propionate 50 mcg/actuation 1 spray intranasal DAILY PRN hydrochlorothiazide 12.5 mg PO QAM hydrocortisone 2.5% 1 appl VT BID PRN lorazepam 1 mg PO DAILY PRN pravastatin 20 mg PO DAILY sulfamethoxazole-trimethoprim 800-160 mg (Bactrim DS) 1 tab PO Q12H 7 days Tobacco use date assessed: 06/18/24 Dental Screening Dental Screen Date: 06/18/24 HPI 5mo. f/u HPI Details 83 year-old lady with anxiety disorder, takes lorazepam as needed, hyperlipidemia and hypertension, here for follow-up. She has been feeling well, with no complaints at present time. Compliant with her medications, and tries to stay active, eat a healthy diet. [facility] Medical History Postmenopausal atrophic vaginitis History of compression fracture of spine Impaired fasting glucose Hx of basal cell carcinoma External hemorrhoids Smoker unmotivated to quit COPD (chronic obstructive pulmonary disease) Lumbar compression fracture Osteopenia of left femoral neck Essential hypertension Dyslipidemia Generalized anxiety disorder Surgical History History of ganglion cyst H/O left breast biopsy History of tonsillectomy History of colonoscopy Family History Father No problems noted. Mother No problems noted. Sister No problems noted. Sister Breast cancer Endometrial cancer Daughter No problems noted. Daughter No problems noted. Social History Housing: House Alcohol intake: current Patient Tobacco Use Status: Current everyday Tobacco user Cigarette Packs Per Day: 0 Cigarettes Per Day: 15 Years Smoked: 68 e-Cigarette/Vaping Use: Never Used service: No Current occupational status: retired Cognitive needs: No Hearing needs: No Vision needs: Yes Questionnaire PHQ-9 Over the last 2 weeks, how often have you been bothered by any of the following problems? 1. Little interest or pleasure in doing things: not at all 2. Feeling down, depressed, or hopeless: not at all 3. Trouble falling or staying asleep, or sleeping too much: several days 4. Feeling tired or having little energy: several days 5. Poor appetite or overeating: not at all 6. Feeling bad about yourself - or that you are a failure or have let yourself or your family down: not at all 7. Trouble concentrating on things, such as reading the newspaper or watching television: not at all 8. Moving or speaking so slowly that other people could have noticed. Or the opposite - being so fidgety or restless that you have been moving around a lot more than usual: not at all 9. Thoughts that you would be better off or of hurting yourself in some way: not at all Total score: 2 Depression Screening Interpretation: Negative Depression Screening Done: Yes 92971 - PHQ-9 Billing: Yes Source: Developed by Drs. oRnny England, Yesy Garcia, Feliz Garay and colleagues, with an educational orly from [employer]. Thrive Questionnaire Date Thrive assessed: 10/27/24 I am a: Patient What is your living situation today?: I have a steady place to live Within the past 12 months, did the food you bought not last and you didn't have the money to get more?: Never true Within the past 12 months, did you worry whether your food would run out before you got money to buy more?: Never true Do you have trouble paying for medicines?: No Do you have trouble getting transportation to medical appointments?: No Do you have trouble paying your heating and electricity bill?: No Do you have trouble taking care of your child, family member or friend?: No Do you have trouble with day-to-day activities such as bathing, preparing meals, shopping, managing finances, etc.?: No Are you currently unemployed and looking for a job?: No Are you interested in more education?: No Please select the resources that you would like help with: None Currently or been in a relationship where the following occur: No concerns reported THRIVE Score: 0 AUDIT C Alcohol Use Questionnaire (AUDIT-C) 1. How often do you have a drink containing alcohol?: Never Total Score: 0 KALINA-7 AMB Questionnaire KALINA-7 Date KALINA - 7 assessed: 06/18/24 Source: Developed by Drs. Ronny England, Yesy Garcia, Feliz Garay and colleagues, with an educational orly from [employer]. Review of Systems Const Denies fatigue, Denies fever(s), Denies headache(s) and Denies weakness ENT Denies dizziness, Denies headache(s), Denies nasal congestion and Denies nasal discharge Card Denies chest pain, Denies lightheadedness, Denies palpitations and Denies dyspnea Resp Denies chest congestion, Denies cough and Denies dyspnea GI Denies abdominal pain, Denies change in bowel habits and Denies heartburn Denies urinary frequency, Denies dysuria and Denies urinary urgency Musc Details: Occasional pain stiffness in lower back Neuro Denies dizziness, Denies headache(s) and Denies weakness Psych Reports no additional complaints Endo Denies fatigue, Denies polydipsia, Denies polyuria and Denies palpitations Carlyle/Lymph Reports no additional complaints Physical exam (Primary Care) Tobacco/Smoking Status: Tobacco use Status Tobacco use date assessed 06/18/24 10/27/24 12:51 Patient Tobacco Use Status Current everyday Tobacco 10/27/24 12:51 e-Cigarette/Vaping Use Never Used 10/27/24 12:51 PHQ-9: PHQ-9 Score PHQ-9: Total score 2 11/07/24 20:58 Depression Screening Interpretation: Negative Thrive Assessment: Date of Thrive Assessment Date Thrive assessed 10/27/24 11/07/24 20:58 Currently or been in a relationship where the following occur: No concerns reported Const Other: Alert oriented x3 no acute distress noted ambulatory normal gait Orientation/consciousness: patient oriented x3 HENMT Other: Normocephalic atraumatic, no nasal drainage, moist oral mucosa Eyes General: appearance normal, both eyes and all related structures Neck Other: Neck is supple with no lymphadenopathy palpated, thyroid gland nonpalpable Resp Other: Clear to auscultation bilaterally Cardio Other: S1-S2 present regular rate and rhythm GI Other: Normal bowel sounds, soft, nontender, no mass palpated Back/Spine/Pelvis Other: Positive kyphosis Thoracic/Lumbar Spine: straight leg raise negative bilaterally and paraspinal muscle tenderness bilaterally in the lower lumbar Neuro General: patient oriented x3, gait normal, moves all extremities, Normal light touch and pain sensation and no focal motor deficits Extrem General: Yes full ROM, Yes no joint enlargement, Yes no pedal edema, Yes no calf tenderness and Yes normal gait Psych Appearance: grossly normal and well kempt Mental Status: mental status grossly normal Speech and movement: Normal speech and movement present Affect: normal affect Attitude: cooperative Thought process: Normal thought process present Results Reviewed Results Reviewed: Name: Chanelle Dawn Age/Sex: 83/F : 1940 Unit#: [id number] Attend Dr: Ijeoma Toledo MD Re10/15/24 Status: DEP REF Location: [facility] Disch: SPEC : [id number] ÁNGEL: 10/15/24 STATUS: COMP REQ : [id number] RECD: 10/15/[address]: Ijeoma Toledo MD COMP: 10/15/24 ENTERED: 10/15/[address]: ORDERED: Met Prof Fast, AST, ALT, Lipid Panel, Vitamin D 25-OH Test Result Flag Reference Sodium 140 135-145 mmol/L Potassium 4.0 3.3-5.1 mmol/L CL 106 96-108 mmol/L CO2 26 22-29 mmol/L Gap 12 12-20 BUN 16 9-16 mg/dL Creat 0.69 0.5-1.4 mg/dL eGFR > 60 Chronic Kidney Disease: Estimated GFR < 60 mL/min/1.73m2 Severe Kidney Disease: Estimated GFR < 15 mL/min/1.73m2 FBS 94 60-99 mg/dL CA 9.9 8.4-10.2 mg/dL AST (GOT) 27 5-31 U/L ALT (GPT) 21 0-31 U/L Triglyceride 75 <150 mg/dL Desirable Triglyceride: less than 150 mg/dL Borderline High Triglyceride 150-199 mg/dL High Triglyceride: 200-499 mg/dL Very High Triglyceride: greater than or equal to 5OO mg/dL Cholesterol 197 <200 mg/dL Desirable Cholesterol: less than 200 mg/dL Borderline High Cholesterol: 200-239 mg/dL High Cholesterol: greater than 239 mg/dL LDL Calculated 117 H <100 mg/dL Desirable LDL: less than 100 mg/dL Near Optimal/Above Optimal LDL: 110-129 mg/dL Borderline High LDL: 130-159 mg/dL High LDL: 160-189 mg/dL Very High LDL: greater than or equal to 190 mg/dL HDL 65 >40 mg/dL Desirable HDL: greater than 40 mg/dL Note: This HDL assay may give artificially low results in patients with liver disease. Vitamin D 25-OH 80.4 >30 ng/mL Health Based Reference Values* < 20 ng/mL Deficient 20-30 ng/mL Insufficient > 30 ng/mL Sufficient Coding Level of Care Code Est Pt Level 4 (06604) Complex EM visit Add On G2211 Diagnoses Smoker unmotivated to quit F17.200 Essential hypertension I10 Dyslipidemia E78.5 Generalized anxiety disorder F41.1 Impaired fasting glucose R73.01 Additional Codes PHQ-9 - 60464 - PHQ-9 Billing: Yes ([id number]) Assessment & Plan Assessment & Plan (1) Smoker unmotivated to quit: Code(s): F17.200 - Nicotine dependence, unspecified, uncomplicated Category: Social Hx Plan: Patient strongly advised to stop smoking, as smoking damages blood vessels, degenerative of joints and spine, damage to lungs and heart., predisposes to developing certain cancers like lung, breast, bladder, colon. Recommended to try decreasing cigarette use by 1-2 cigarettes a day. Advised to monitor what triggers are for smoking so that this can be discussed on the next office visit. We can discuss different options to quit smoking when ready. (2) Essential hypertension: Code(s): I10 - Essential (primary) hypertension Category: Medical Plan: Blood pressure within acceptable limits, continued on hydrochlorothiazide 255 mg once a day in a.m. (3) Dyslipidemia: Code(s): E78.5 - Hyperlipidemia, unspecified Category: Medical Plan: Fasting lipids are within normal limits, continued on pravastatin 20 mg at bedtime (4) Generalized anxiety disorder: Code(s): F41.1 - Generalized anxiety disorder Category: Medical Plan: Takes lorazepam only as needed for acute anxiety attacks. (5) Impaired fasting glucose: Code(s): R73.01 - Impaired fasting glucose Category: Medical Plan: Latest labs showed normal fasting glucose. Impaired glucose metabolism increases the risk for developing diabetes mellitus type 2, as well as heart attack and stroke later on. Lifestyle changes that promotes weight loss, healthy eating habits, and regular exercise are important, and can prevent the progression to diabetes
== END 2024-10-27 14:08 | disposition home or self-care (01) ==
LOC: HO.HMCC 11:46
PROVIDERS: PCP Internal Medicine; Visit Provider Internal Medicine
DX: F17.200 Nicotine dependence, unspecified, uncomplicated (principal); I10 Essential (primary) hypertension; E78.5 Hyperlipidemia, unspecified; F41.1 Generalized anxiety disorder; R73.01 Impaired fasting glucose

== ENCOUNTER → 2024-10-27 11:46 | Outpatient (BNVA) | payer MEDICARE, SELFPAY | PROVIDERS: PCP Internal Medicine; Visit Provider Internal Medicine | DX: I10 Essential (primary) hypertension (principal); E78.5 Hyperlipidemia, unspecified; F41.1 Generalized anxiety disorder; R73.01 Impaired fasting glucose; F17.210 Nicotine dependence, cigarettes, uncomplicated; Z79.899 Other long term (current) drug therapy | CPT/HCPCS: 96127; 99212 ==

== ENCOUNTER 2024-11-27 11:01 | Outpatient (AMB) | payer MEDICARE, SELFPAY ==
[2024-11-27 11:32] VITALS: BP 118/80; PULSE 71; RESP 16; TEMP 36.6; O2SAT 97; BMI 25.0
--- NOTE | 2024-11-27 11:32 | AM.OFFWIN_ITS ---
Intake Vital Signs 11/27/24 11:32 Height 5 ft 3 in Weight 141 lb BMI 25.0 BP 118/80 Blood Pressure Location Rt brachial Position Sitting Respiration 16 Pulse 71 Pulse Source Pulse Oximeter Temp 97.8 F Temp Source Oral Pulse Oximetry (%) 97 Oxygen Delivery Method Room Air Intake Visit Reasons: EP UTI? Intake Note: Pt is here today c/o burning sensation upon urination Patient Tobacco Use Status: Current everyday Tobacco user Allergies ranitidine [Zantac] Allergy (Unknown, Verified 11/27/24 11:42) fever and rash lisinopril Adverse Reaction (Unknown, Verified 11/27/24 11:42) dry cough famotidine [From Pepcid] Adverse Reaction (Verified 11/27/24 11:42) elevates BP HPI EP UTI? HPI Details This is an 83-year-old female patient who presents to the walk-in clinic today with recurring UTI symptoms, including dysuria, bladder pressure, urgency, frequency. She has been treated for this over the last 1-2 months, with Macrobid and also Bactrim. She reports the abx help briefly, however then symptoms recur. She denies any fevers or flank pain. Urine culture showed E-coli with sensitivity to multiple abx (including nitrofurantoin and trimethoprim/sulfamethoxazole). [facility] Medical History Postmenopausal atrophic vaginitis History of compression fracture of spine Impaired fasting glucose Hx of basal cell carcinoma External hemorrhoids Smoker unmotivated to quit COPD (chronic obstructive pulmonary disease) Lumbar compression fracture Osteopenia of left femoral neck Essential hypertension Dyslipidemia Generalized anxiety disorder Surgical History History of ganglion cyst H/O left breast biopsy History of tonsillectomy History of colonoscopy Family History Father No problems noted. Mother No problems noted. Sister No problems noted. Sister Breast cancer Endometrial cancer Daughter No problems noted. Daughter No problems noted. Social History Housing: House Alcohol intake: current Patient Tobacco Use Status: Current everyday Tobacco user Cigarette Packs Per Day: 0 Cigarettes Per Day: 15 Years Smoked: 68 e-Cigarette/Vaping Use: Never Used service: No Current occupational status: retired Cognitive needs: No Hearing needs: No Vision needs: Yes Review of Systems Const All systems reviewed & are unremarkable except as noted in HPI and below Physical Exam Vital Signs: BMI result Body Mass Index 25.0 Const General: cooperative and no acute distress Limitations: no limitations Resp Effort & Inspection: normal respiratory effort General: Yes bladder normal to palpation and Yes no CVA tenderness Bimanual exam- vagina & uterus: bladder normal to palpation Back/Spine/Pelvis Back: no CVA tenderness Skin General skin exam: no rashes or lesions noted Extrem General: Yes no clubbing, cyanosis or edema Psych Appearance: grossly normal Mental Status: mental status grossly normal Speech and movement: Normal speech and movement present Results AMB Urinalysis, Automated UA Leukoctes 15 Jenny/uL Last Edit by Sola Munoz CMA on 11/27/24 11:40 UA Nitrite Negative Last Edit by Sola Munoz CMA on 11/27/24 11:40 UA Urobilinogen 0.2 mg/dL Last Edit by Sola uMnoz CMA on 11/27/24 11:40 UA Protein 0 mg/dL Last Edit by Sola Munoz CMA on 11/27/24 11:40 UA pH 6.0 Last Edit by Sola Munoz CMA on 11/27/24 11:40 UA Blood 0 Luis/uL Last Edit by Sola Munoz CMA on 11/27/24 11:40 UA Specific [place] 1.015 Last Edit by Sola Munoz CMA on 11/27/24 11:40 UA Ketone Negative Last Edit by Sola Munoz CMA on 11/27/24 11:40 UA Bilirubin 0 mg/dL Last Edit by Sola Munoz CMA on 11/27/24 11:40 UA Glucose 0 mg/dL Last Edit by Sola Munoz CMA on 11/27/24 11:40 Results Reviewed Results Reviewed: Laboratory Last Values Urine pH (Auto) 6.0 11/27/24 11:37 Specific [place] (Auto) 1.015 11/27/24 11:37 Urine Protein (Auto) 0 mg/dL 11/27/24 11:37 Glucose (UA)(Auto) 0 mg/dL 11/27/24 11:37 Urine Ketones (Auto) Negative 11/27/24 11:37 Urine Blood (Auto) 0 Luis/uL 11/27/24 11:37 Urine Nitrite (Auto) Negative 11/27/24 11:37 Urine Bilirubin (Auto) 0 mg/dL 11/27/24 11:37 Urine Urobilinogen (Auto) 0.2 mg/dL 11/27/24 11:37 Leukocyte Esterase (Auto) 15 Jenny/uL 11/27/24 11:37 Assessment & Plan Assessment & Plan (1) UTI (urinary tract infection): Code(s): N39.0 - Urinary tract infection, site not specified Qualifiers: Urinary tract infection type: acute cystitis Hematuria presence: without hematuria Qualified Code(s): N30.00 - Acute cystitis without hematuria Plan: Recurring UTI. Will send culture. Has been treated previously with Macrobid and Bactrim. We will try Cephalexin BID 7 days. She has an otc supply of phenazopyridine she will start taking. Advised increased hydration. If she does not improve with treatment she should return to the [place] [facility]. Patient agrees to plan. Orders: Orders AMB Urinalysis Automated Today Lily Altamirano PA-C Z13.9 - Encounter for screening, unspecified Urine Culture Today JIN Chin N39.0 - Urinary tract infection, site not specified Medications: New cephalexin 500 mg PO BID 7 days 14 caps 0RF JIN Chin N30.00 - Acute cystitis without hematuria Coding Level of Care Code Est Pt Level 4 (56113) Diagnoses Acute cystitis without hematuria N30.00 Urinary tract infection type: acute cystitis Hematuria presence: without hematuria
== END 2024-11-27 12:21 | disposition home or self-care (01) ==
PROVIDERS: PCP Internal Medicine; Visit Provider Nurse Practitioner Family
DX: Z13.9 Encounter for screening, unspecified (principal); N30.00 Acute cystitis without hematuria

== ENCOUNTER 2024-11-27 11:01 | Outpatient (REF) | payer MEDICARE, SELFPAY | END 2024-11-27 11:02 | disposition home or self-care (01) | LOC: HO.LAB 11:01 | PROVIDERS: PCP Internal Medicine; Visit Provider Nurse Practitioner Family | DX: N39.0 Urinary tract infection, site not specified (principal); Z79.2 Long term (current) use of antibiotics | CPT/HCPCS: 81003; 87086; 99212 ==

== ENCOUNTER 2024-12-14 11:39 | Outpatient (AMB) | payer MEDICARE, SELFPAY ==
[2024-12-14 12:32] VITALS: BP 118/76; PULSE 68; TEMP 36.6; O2SAT 95; BMI 24.8
--- NOTE | 2024-12-14 12:32 | AM.OFFWIN_ITS ---
Intake Vital Signs 12/14/24 12:32 Height 5 ft 3 in Weight 140 lb BMI 24.8 BP 118/76 Blood Pressure Location Lt brachial Position Sitting Pulse 68 Pulse Source Pulse Oximeter Temp 97.8 F Temp Source Oral Pulse Oximetry (%) 95 Oxygen Delivery Method Room Air Intake Visit Reasons: EP ? UTI Intake Note: Patient Tobacco Use Status: Current everyday Tobacco user [employer] Hand Required: No Allergies ranitidine (Zantac) Allergy (Unknown, Verified 12/14/24 12:40) fever and rash lisinopril Adverse Reaction (Unknown, Verified 12/14/24 12:40) dry cough famotidine (From Pepcid) Adverse Reaction (Verified 12/14/24 12:40) elevates BP Do you need a note to return to daycare/school/sports/work: No HPI HPI Comments History of Present Illness Details History - The patient is an 84-year-old female p resenting with symptoms suggestive of a urinary tract infection. - Initial treatment for UTI included ant ibiotics, which were changed due to side effects, but symptoms persisted. - Current symptoms include burning sensa tion and bladder fullness, with no pain or cramping. - Denies hematuria, fever, chills, or na usea. - Her last urine test was clear. - History of three compression fractures contributing to back pain. - She has not seen a urologist. - She denies CP, SOB, or vaginal dischar ge. - She denies vaginal itch or bleeding. Physical Exam General: Cooperative, healthy appearing, comfortable, no acute distress and well developed Cardiac: Normal S1 and S2. RRR, no M/R/G noted. Respiratory: Normal respiratory effort and able to speak in complete sentences. Clear to auscultation bilaterally. No w/r/r noted. Skin: No rashes or lesions noted. GI: Normal inspection. Normal BS noted. Soft, non-tender, non-distended. No TTP of all 4 quadrants. No guarding or rebound tenderness noted. Back: Negative CVA bilaterally Patient was informed and verbally consented to the use of an ambient scribe for clinic note documentation during this visit. [facility] Medical History Postmenopausal atrophic vaginitis History of compression fracture of spine Impaired fasting glucose Hx of basal cell carcinoma External hemorrhoids Smoker unmotivated to quit COPD (chronic obstructive pulmonary disease) Lumbar compression fracture Osteopenia of left femoral neck Essential hypertension Dyslipidemia Generalized anxiety disorder Surgical History History of ganglion cyst H/O left breast biopsy History of tonsillectomy History of colonoscopy Family History Father No problems noted. Mother No problems noted. Sister No problems noted. Sister Breast cancer Endometrial cancer Daughter No problems noted. Daughter No problems noted. Social History Housing: House Alcohol intake: current Patient Tobacco Use Status: Current everyday Tobacco user Cigarette Packs Per Day: 0 Cigarettes Per Day: 15 Years Smoked: 68 e-Cigarette/Vaping Use: Never Used service: No Current occupational status: retired Cognitive needs: No Hearing needs: No Vision needs: Yes Review of Systems Const All systems reviewed & are unremarkable except as noted in HPI and below Physical Exam Vital Signs: Last Vital Signs Temp 97.8 F 12/14/24 12:32 Pulse 68 12/14/24 12:32 BP 118/76 12/14/24 12:32 Pulse Ox 95 12/14/24 12:32 Oxygen Delivery Method Room Air 12/14/24 12:32 BMI result Body Mass Index 24.8 Results AMB Urinalysis, Automated UA Leukoctes 0 Jenny/uL Last Edit by Sola Munoz CMA on 12/14/24 12:42 UA Nitrite Negative Last Edit by Sola Munoz CMA on 12/14/24 12:42 UA Urobilinogen 0.2 mg/dL Last Edit by Sola Munoz CMA on 12/14/24 12:42 UA Protein 0 mg/dL Last Edit by Sola Munoz CMA on 12/14/24 12:42 UA pH 6.0 Last Edit by Sola Munoz CMA on 12/14/24 12:42 UA Blood 0 Luis/uL Last Edit by Sola Munoz CMA on 12/14/24 12:42 UA Specific [place] 1.015 Last Edit by Sola Munoz CMA on 12/14/24 12:42 UA Ketone Negative Last Edit by Sola Munoz CMA on 12/14/24 12:42 UA Bilirubin 0 mg/dL Last Edit by Sola Munoz CMA on 12/14/24 12:42 UA Glucose 0 mg/dL Last Edit by Sola Munoz CMA on 12/14/24 12:42 Results Reviewed Results Reviewed: Laboratory Last Values Urine pH (Auto) 6.0 12/14/24 12:32 Specific [place] (Auto) 1.015 12/14/24 12:32 Urine Protein (Auto) 0 mg/dL 12/14/24 12:32 Glucose (UA)(Auto) 0 mg/dL 12/14/24 12:32 Urine Ketones (Auto) Negative 12/14/24 12:32 Urine Blood (Auto) 0 Luis/uL 12/14/24 12:32 Urine Nitrite (Auto) Negative 12/14/24 12:32 Urine Bilirubin (Auto) 0 mg/dL 12/14/24 12:32 Urine Urobilinogen (Auto) 0.2 mg/dL 12/14/24 12:32 Leukocyte Esterase (Auto) 0 Jenny/uL 12/14/24 12:32 Assessment & Plan Assessment & Plan (1) Dysuria: Code(s): R30.0 - Dysuria Plan Most likely UTI vs stone vs stricture vs urethritis UA in the office was negative Plan - Urine culture to rule out bacterial infection despite clear urine tests. - Referral to urology for further evaluation of persistent symptoms. - Blood work to assess kidney function and rule out other underlying issues. Orders: Orders AMB Urinalysis Automated Today Z13.9 - Encounter for screening, unspecified Complete Blood Count Auto Diff Today R30.0 - Dysuria Basic Metabolic Panel Today R30.0 - Dysuria UA CC w/rflx Micro + Cult Today R30.0 - Dysuria Referrals Urology Referral R30.0 - Dysuria Coding Level of Care Code Est Pt Level 4 (72813) Diagnoses Dysuria R30.0
== END 2024-12-14 12:58 | disposition home or self-care (01) ==
PROVIDERS: PCP Internal Medicine; Visit Provider Physician Assistant Medical
DX: R30.0 Dysuria (principal)

== ENCOUNTER 2024-12-14 11:39 | Outpatient (REF) | payer MEDICARE, SELFPAY ==
[2024-12-14 16:04] LABS: MANUAL DIFF FLAG NO
[2024-12-14 16:13] LABS: Basophils Percent Auto 0.6 % (0-2); Eosinophils Absolute Auto 0.2 X10*3/uL (0.0-0.4); Eosinophils Percent Auto 2.9 % (0-4); Hematocrit 39.6 % (37.0-47.0); Hemoglobin 13.2 g/dl (12.0-16.0); Imm Gran Abs Auto 0.02 X10*3/uL (0.00-0.03); Imm Gran Pct Auto 0.3 % (0.0-0.4); Lymphocytes Absolute Auto 1.8 X10*3/uL (1.2-4.9); Lymphocytes Percent Auto 27.6 % (20-40); Mean Corpuscular HGB Conc 33.3 g/dl (31.0-35.0); Mean Corpuscular Hemoglobin 32.3 pg (27.0-33.0); Mean Corpuscular Volume 96.8 fL (80.0-98.0); Mean Platelet Volume 11.2 fL (9.4-12.3); Monocytes Absolute Auto 0.5 X10*3/uL (0.1-1.2); Monocytes Percent Auto 7.9 % (2-11); Neutrophils Percent Auto 60.7 % (45-73); Platelet Count 283 X10*3/uL (160-400); Red Blood Count 4.09 X10*6/uL (4.20-5.50); Red Cell Distribution Width 13.7 % (11.0-16.0); White Blood Count 6.6 X10*3/uL (4.8-10.8)
[2024-12-14 16:26] LABS: Anion Gap 13 (12-20); Blood Urea Nitrogen 17 mg/dL (9-16); Calcium 10.1 mg/dL (8.4-10.2); Carbon Dioxide 27 mmol/L (22-29); Chloride 105 mmol/L (96-108); Estimated Glomerular Filt Rate > 60; Glucose Random 105 mg/dL (60-115); Potassium 4.1 mmol/L (3.3-5.1); Sodium 141 mmol/L (135-145)
[2024-12-14 16:30] LABS: Appearance Urine Clear; Color Urine Yellow; Glucose Urine UA Negative (Negative); Leukocyte Esterase Urine Small (1+) (Negative); Nitrite Urine Negative (Negative); PH 5.5 (5.0-9.0); UMIC TRIGGER UACC YES; Urine Blood Negative (Negative); Urine Ketones Negative (Negative); Urine Protein Negative (Neg-Trace)
[2024-12-14 16:43] LABS: Bacteria Urine None Seen (None Seen); Hyaline Casts Urine 0-2 /LPF (0-2); RBC Urine 0-2 /HPF (0-2); Squamous Epithelial Cell Urine 0-2 /HPF (0-2); UACC Culture Trigger YES; WBC Urine 0-5 /HPF (0-5)
== END 2024-12-14 11:40 | disposition home or self-care (01) ==
LOC: HO.HMGCLDS 11:39
PROVIDERS: PCP Internal Medicine; Visit Provider Physician Assistant Medical
DX: R30.0 Dysuria (principal); Z13.9 Encounter for screening, unspecified
CPT/HCPCS: 36415; 80048; 81001; 81003; 85025; 87086; 99212

== ENCOUNTER 2025-01-21 09:55 | Outpatient (REF) | payer MEDICARE, SELFPAY ==
[2025-01-21 13:01] LABS: Appearance Urine Clear; Glucose Urine UA Negative (Negative); PH 5.5 (5.0-9.0); Specific Gravity - Urine 1.015 (1.005-1.025)
[2025-01-21 14:02] LABS: Alanine Aminotransferase 22 U/L (0-31); Anion Gap 12 (12-20); Aspartate Amino Transferase 29 U/L (5-31); Blood Urea Nitrogen 19 mg/dL (9-16); Calcium 9.1 mg/dL (8.4-10.2); Carbon Dioxide 27 mmol/L (22-29); Chloride 106 mmol/L (96-108); Cholesterol 181 mg/dL (<200); Estimated Glomerular Filt Rate > 60; HDL Cholesterol 62 mg/dL (>40); Potassium 3.8 mmol/L (3.3-5.1); Sodium 141 mmol/L (135-145); Triglycerides 66 mg/dL (<150)
== END 2025-01-21 09:56 | disposition home or self-care (01) ==
LOC: HO.HMGCLDS 09:55
PROVIDERS: PCP Internal Medicine; Visit Provider Internal Medicine
DX: R30.0 Dysuria (principal); F41.1 Generalized anxiety disorder; I10 Essential (primary) hypertension; E78.5 Hyperlipidemia, unspecified; R73.01 Impaired fasting glucose; M85.852 Other specified disorders of bone density and structure, left thigh; N95.2 Postmenopausal atrophic vaginitis
CPT/HCPCS: 36415; 80048; 80061; 81001; 82306; 84450; 84460; 87086

== ENCOUNTER 2025-01-26 12:08 | Outpatient (AMB) | payer MEDICARE, SELFPAY ==
[2025-01-26 12:20] VITALS: BP 130/70; PULSE 71; RESP 16; TEMP 36.8; O2SAT 97; BMI 25.0
--- NOTE | 2025-01-26 12:20 | A.OFFPC_ITS ---
Vital Signs 01/26/25 12:20 Height 5 ft 3 in Weight 141 lb BMI 25.0 Intake Visit Reasons: 5 months F/U Bolt Maker Required: No Accompanied by: Self / Same As Patient Allergies ranitidine (Zantac) Allergy (Unknown, Verified 01/26/25 12:21) fever and rash lisinopril Adverse Reaction (Unknown, Verified 01/26/25 12:21) dry cough famotidine (From Pepcid) Adverse Reaction (Verified 01/26/25 12:21) elevates BP Tobacco use date assessed: 01/26/25 Fall risk assessment: No Falls in past year Last assessed Fall Risk: 01/26/25 Dental Screening Dental Screen Date: 01/26/25 Did you have a dental visit in the last 12 months?: Yes Did you have a dental problem in the last 6 months where you did not have access to dental care?: No Was dental information given to patient?: Patient has dentist [facility] Medical History Postmenopausal atrophic vaginitis History of compression fracture of spine Impaired fasting glucose Hx of basal cell carcinoma External hemorrhoids Smoker unmotivated to quit COPD (chronic obstructive pulmonary disease) Lumbar compression fracture Osteopenia of left femoral neck Essential hypertension Dyslipidemia Generalized anxiety disorder Surgical History History of ganglion cyst H/O left breast biopsy History of tonsillectomy History of colonoscopy Family History Father No problems noted. Mother No problems noted. Sister No problems noted. Sister Breast cancer Endometrial cancer Daughter No problems noted. Daughter No problems noted. Social History Housing: House Alcohol intake: current Patient Tobacco Use Status: Current everyday Tobacco user Cigarette Packs Per Day: 0 Cigarettes Per Day: 15 Years Smoked: 68 e-Cigarette/Vaping Use: Never Used service: No Current occupational status: retired Cognitive needs: No Hearing needs: No Vision needs: Yes Questionnaire Thrive Questionnaire Date Thrive assessed: 01/26/25 KALINA-7 AMB Questionnaire KALINA-7 Date KALINA - 7 assessed: 01/26/25 Feeling nervous, anxious, or on edge: 1 = Several days Not being able to stop or control worryin = Several days Worrying too much about different things: 1 = Several days Trouble relaxin = Not at all Being so restless that it is hard to sit still: 1 = Several days Becoming easily annoyed or irritable: 0 = Not at all Feeling afraid as if something awful might happen: 1 = Several days Total KALINA-7 score (0-4 normal; 5-9 mild; 10-14 moderate; 15-21 severe): 5 Source: Developed by Drs. Ronny England, Yesy Garcia, Feliz Garay and colleagues, with an educational orly from [employer]. KALINA-7 Assessment Billing KALINA-7 Assessment Tool: KALINA-7 Assessment 04810 Physical exam (Primary Care) Tobacco/Smoking Status: Tobacco use Status Tobacco use date assessed 06/18/24 10/27/24 12:51 Patient Tobacco Use Status Current everyday Tobacco 12/14/24 12:32 e-Cigarette/Vaping Use Never Used 10/27/24 12:51 Thrive Assessment: Date of Thrive Assessment Date Thrive assessed 01/26/25 01/26/25 12:09 Coding Additional Codes KALINA-7 Assessment Billing - KALINA-7 Assessment Tool: KALINA-7 Assessment 84304 ([id number])
--- NOTE | 2025-01-26 12:20 | MHC.PC.OV ---
Vital Signs 01/26/25 12:20 Height 5 ft 3 in Weight 141 lb BMI 25.0 BP 130/70 Blood Pressure Location Lt brachial Position Sitting Respiration 16 Pulse 71 Pulse Source Pulse Oximeter Temp 98.2 F Temp Source Oral Pulse Oximetry (%) 97 Oxygen Delivery Method Room Air Intake Visit Reasons: 5 months F/U Intake Note: Pt is here today for her 5mo. f/u Allergies ranitidine (Zantac) Allergy (Unknown, Verified 01/31/25 18:07) fever and rash lisinopril Adverse Reaction (Unknown, Verified 01/31/25 18:07) dry cough famotidine (From Pepcid) Adverse Reaction (Verified 01/31/25 18:07) elevates BP Medication List - Last Reconciled 01/31/25 by Ijeoma Toledo MD cholecalciferol (vitamin D3) 50 mcg PO DAILY estradiol 0.01%(0.1mg/gram) (Estrace) 1 g vaginal 2XW fluticasone propionate 50 mcg/actuation 1 spray intranasal DAILY PRN hydrochlorothiazide 12.5 mg PO QAM hydrocortisone 2.5% 1 appl MS BID PRN lorazepam 1 mg PO DAILY PRN pravastatin 20 mg PO DAILY Tobacco use date assessed: 01/26/25 Fall risk assessment: No Falls in past year Last assessed Fall Risk: 01/26/25 Dental Screening Dental Screen Date: 01/26/25 Did you have a dental visit in the last 12 months?: Yes Did you have a dental problem in the last 6 months where you did not have access to dental care?: Yes Was dental information given to patient?: Patient has dentist HPI 5 months F/U HPI Details - The patient is an 84-year-old female presenting with a follow-up for urinary tract infections and associated symptoms. - Urinary Tract Infection (UTI): The patient has experienced recurrent UTIs, with the last normal urine test on January 21. Previous UTIs were noted in September and November, with treatment provided in November. - Menopausal symptoms: The patient reports dryness and burning, . She uses Estrace vaginal cream twice a week, with the option to increase to three times if dryness persists. - Bladder prolapse: The patient suspects bladder prolapse due to pressure in the groin area - Elevated blood glucose: The patient's blood glucose was slightly elevated at 105 mg/dL, possibly due to dietary habits, particularly consuming sweets at night. - Bone thinning: Previous bone density showed thinning in the left hip and thigh, with normal findings in the lower back. A follow-up bone density scan is planned. -has hyperlipidemia, currently on pravastatin 20 mg daily PFSH Medical History Postmenopausal atrophic vaginitis History of compression fracture of spine Impaired fasting glucose Hx of basal cell carcinoma External hemorrhoids Smoker unmotivated to quit COPD (chronic obstructive pulmonary disease) Lumbar compression fracture Osteopenia of left femoral neck Essential hypertension Dyslipidemia Generalized anxiety disorder Surgical History History of ganglion cyst H/O left breast biopsy History of tonsillectomy History of colonoscopy Family History Father No problems noted. Mother No problems noted. Sister No problems noted. Sister Breast cancer Endometrial cancer Daughter No problems noted. Daughter No problems noted. Social History Housing: House Alcohol intake: current Patient Tobacco Use Status: Current everyday Tobacco user Cigarette Packs Per Day: 0 Cigarettes Per Day: 15 Years Smoked: 68 e-Cigarette/Vaping Use: Never Used service: No Current occupational status: retired Cognitive needs: No Hearing needs: No Vision needs: Yes Questionnaire PHQ-9 Over the last 2 weeks, how often have you been bothered by any of the following problems? Depression Screening Interpretation: Negative Depression Screening Done: Yes Source: Developed by Drs. Ronny England, Yesy Garcia, Feliz Garay and colleagues, with an educational orly from [employer]. Thrive Questionnaire Date Thrive assessed: 01/26/25 Currently or been in a relationship where the following occur: No concerns reported THRIVE Score: 0 KALINA-7 AMB Questionnaire KALINA-7 Date KALINA - 7 assessed: 06/18/24 Source: Developed by Drs. Ronny England, Feliz Null and colleagues, with an educational orly from [employer]. Review of Systems Const Denies fatigue, Denies fever(s), Denies headache(s) and Denies weakness Eyes Denies change in vision ENT Denies dizziness, Denies headache(s), Denies nasal congestion and Denies nasal discharge Card Denies chest pain, Denies lightheadedness, Denies palpitations and Denies dyspnea Resp Denies chest congestion, Denies cough and Denies dyspnea GI Denies abdominal pain, Denies change in bowel habits and Denies heartburn Denies urinary frequency, Denies dysuria and Denies urinary urgency Musc Details: Occasional pain stiffness in lower back Neuro Denies dizziness, Denies headache(s) and Denies weakness Psych Reports no additional complaints Endo Denies fatigue, Denies polydipsia, Denies polyuria and Denies palpitations Carlyle/Lymph Reports no additional complaints Aller/Immun Reports no additional complaints Physical exam (Primary Care) Vital Signs: Last Vital Signs Temp 98.2 F 01/26/25 12:20 Pulse 71 01/26/25 12:20 Resp 16 01/26/25 12:20 BP 130/70 01/26/25 12:20 Pulse Ox 97 01/26/25 12:20 Oxygen Delivery Method Room Air 01/26/25 12:20 BMI result Body Mass Index 25.0 Tobacco/Smoking Status: Tobacco use Status Tobacco use date assessed 01/26/25 01/26/25 12:25 Patient Tobacco Use Status Current everyday Tobacco 01/26/25 12:25 e-Cigarette/Vaping Use Never Used 01/26/25 12:25 Depression Screening Interpretation: Negative Thrive Assessment: Date of Thrive Assessment Date Thrive assessed 01/26/25 01/26/25 12:25 Currently or been in a relationship where the following occur: No concerns reported Const Other: Alert oriented x3 no acute distress noted ambulatory normal gait HENMT Other: Normocephalic atraumatic, no nasal drainage, moist oral mucosa Eyes General: appearance normal, both eyes and all related structures Neck Other: Neck is supple with no lymphadenopathy palpated, thyroid gland nonpalpable Resp Other: Clear to auscultation bilaterally Cardio Other: S1-S2 present regular rate and rhythm GI Other: Normal bowel sounds, soft, nontender, no mass palpated Back/Spine/Pelvis Other: Positive kyphosis Neuro General: gait normal, moves all extremities, Normal light touch and pain sensation and no focal motor deficits Extrem General: Yes full ROM, Yes no joint enlargement, Yes no pedal edema, Yes no calf tenderness and Yes normal gait Psych Appearance: grossly normal and well kempt Mental Status: mental status grossly normal Speech and movement: Normal speech and movement present Affect: normal affect Results Reviewed Results Reviewed: Name: Chanelle Dawn Age/Sex: 84/F : 1940 Unit#: [id number] Attend Dr: HARLEY OCHOA Re12/14/24 Status: DEP REF Location: [facility] Disch: SPEC : [id number] ÁNGEL: 12/14/24 STATUS: COMP REQ : [id number] RECD: 12/14/[address]: HARLEY OCHOA COMP: 12/14/24 ENTERED: 12/14/[address]: Ijeoma Toledo MD ORDERED: CBC Auto Diff Test Result Flag Reference WBC 6.6 4.8-10.8 X10*3/uL RBC 4.09 L 4.20-5.50 X10*6/uL HGB 13.2 12.0-16.0 g/dl HCT 39.6 37.0-47.0 % MCV 96.8 80.0-98.0 fL MCH 32.3 27.0-33.0 pg MCHC 33.3 31.0-35.0 g/dl RDW 13.7 11.0-16.0 % PLT 283 160-400 X10*3/uL MPV 11.2 9.4-12.3 fL Neut Pct Auto 60.7 45-73 % ImGran Pct Auto 0.3 0.0-0.4 % Lymp Pct Auto 27.6 20-40 % [place] Pct Auto 7.9 2-11 % Eos Pct Auto 2.9 0-4 % Baso Pct Auto 0.6 0-2 % NRBC Pct Auto 0.0 0.0-0.2 /100WBC ANC Neut Abs # 4.0 2.0-8.3 x10*3/uL ImGran Abs Auto 0.02 0.00-0.03 X10*3/uL Lymph Abs Auto 1.8 1.2-4.9 X10*3/uL [place] Abs Auto 0.5 0.1-1.2 X10*3/uL Eos Abs Auto 0.2 0.0-0.4 X10*3/uL Baso Abs Auto 0.0 0.0-0.2 X10*3/uL NRBC Abs Auto 0.000 0.0-0.012 X10*3/uL Name: Chanelle Dawn Age/Sex: 84/F : 1940 Unit#: [id number] Attend Dr: Ijeoma Toledo MD Re01/21/25 Status: DEP REF Location: [facility] Disch: SPEC : [id number] ÁNGEL: 01/21/25 STATUS: COMP REQ : [id number] RECD: 01/21/25-[address]: Ijeoma Toledo MD COMP: 01/21/25 ENTERED: 01/21/[address]: ORDERED: Met Prof Fast, AST, ALT, Lipid Panel, Vitamin D 25-OH Test Result Flag Reference Sodium 141 135-145 mmol/L Potassium 3.8 3.3-5.1 mmol/L CL 106 96-108 mmol/L CO2 27 22-29 mmol/L Gap 12 12-20 BUN 19 H 9-16 mg/dL Creat 0.85 0.5-1.4 mg/dL eGFR > 60 Chronic Kidney Disease: Estimated GFR < 60 mL/min/1.73m2 Severe Kidney Disease: Estimated GFR < 15 mL/min/1.73m2 FBS 105 H 60-99 mg/dL A fasting glucose from 100-125 mg/dl is considered impaired (pre-diabetes). CA 9.1 # 8.4-10.2 mg/dL AST (GOT) 29 5-31 U/L ALT (GPT) 22 0-31 U/L Triglyceride 66 <150 mg/dL Desirable Triglyceride: less than 150 mg/dL Borderline High Triglyceride 150-199 mg/dL High Triglyceride: 200-499 mg/dL Very High Triglyceride: greater than or equal to 5OO mg/dL Cholesterol 181 <200 mg/dL Desirable Cholesterol: less than 200 mg/dL Borderline High Cholesterol: 200-239 mg/dL High Cholesterol: greater than 239 mg/dL LDL Calculated 106 H <100 mg/dL Desirable LDL: less than 100 mg/dL Near Optimal/Above Optimal LDL: 110-129 mg/dL Borderline High LDL: 130-159 mg/dL High LDL: 160-189 mg/dL Very High LDL: greater than or equal to 190 mg/dL HDL 62 >40 mg/dL Desirable HDL: greater than 40 mg/dL Note: This HDL assay may give artificially low results in patients with liver disease. Vitamin D 25-OH 78.8 >30 ng/mL Health Based Reference Values* < 20 ng/mL Deficient 20-30 ng/mL Insufficient > 30 ng/mL Sufficient Coding Level of Care Code Est Pt Level 4 (33131) Complex EM visit Add On G2211 Diagnoses Osteopenia of left femoral neck M85.852 Dyslipidemia E78.5 Essential hypertension I10 Smoker unmotivated to quit F17.200 Assessment & Plan Assessment & Plan (1) Osteopenia of left femoral neck: Code(s): M85.852 - Other specified disorders of bone density and structure, left thigh Category: Medical (2) Dyslipidemia: Code(s): E78.5 - Hyperlipidemia, unspecified Category: Medical (3) Essential hypertension: Code(s): I10 - Essential (primary) hypertension Category: Medical (4) Smoker unmotivated to quit: Code(s): F17.200 - Nicotine dependence, unspecified, uncomplicated Category: Social Hx Plan: Patient strongly advised to stop smoking, as smoking damages blood vessels, degenerative of joints and spine, damage to lungs and heart., predisposes to developing certain cancers like lung, breast, bladder, colon. Recommended to try decreasing cigarette use by 1-2 cigarettes a day. Advised to monitor what triggers are for smoking so that this can be discussed on the next office visit. We can discuss different options to quit smoking when ready. Plan Advised to continue using Estrace vaginal cream twice a week, with the option to increase to three times if dryness persists. She is advised to urinate every two hours and avoid caffeine to manage bladder prolapse symptoms. A referral to a urologist is considered if urinary tract infections persist. A bone density scan is ordered to monitor bone health, and a shingles vaccination is recommended Blood work is scheduled for May to monitor cholesterol and glucose levels. Continue with pravastatin 20 mg at bedtime. The patient is encouraged to quit smoking and continue engaging in exercises provided by the [facility]. Patient was informed and verbally consented to the use of an ambient scribe for clinic note documentation during this visit. Orders: Orders XR DEXA axial skeleton 01/26/25 M85.852 - Other specified disorders of bone density and structure, left thigh, Z78.0 - Asymptomatic menopausal state Vitamin D 25-OH Total 05/15/25 E78.5 - Hyperlipidemia, unspecified, F17.200 - Nicotine dependence, unspecified, uncomplicated, I10 - Essential (primary) hypertension, M85.852 - Other specified disorders of bone density and structure, left thigh Lipid Panel 05/15/25 E78.5 - Hyperlipidemia, unspecified, F17.200 - Nicotine dependence, unspecified, uncomplicated, I10 - Essential (primary) hypertension, M85.852 - Other specified disorders of bone density and structure, left thigh Basic Metabolic Panel Fasting 05/15/25 E78.5 - Hyperlipidemia, unspecified, F17.200 - Nicotine dependence, unspecified, uncomplicated, I10 - Essential (primary) hypertension, M85.852 - Other specified disorders of bone density and structure, left thigh Alanine Aminotransferase 05/15/25 E78.5 - Hyperlipidemia, unspecified, F17.200 - Nicotine dependence, unspecified, uncomplicated, I10 - Essential (primary) hypertension, M85.852 - Other specified disorders of bone density and structure, left thigh Aspartate Amino Transferase 05/15/25 E78.5 - Hyperlipidemia, unspecified, F17.200 - Nicotine dependence, unspecified, uncomplicated, I10 - Essential (primary) hypertension, M85.852 - Other specified disorders of bone density and structure, left thigh Hemoglobin and Hematocrit 05/15/25 E78.5 - Hyperlipidemia, unspecified, F17.200 - Nicotine dependence, unspecified, uncomplicated, I10 - Essential (primary) hypertension, M85.852 - Other specified disorders of bone density and structure, left thigh
== END 2025-01-26 12:49 | disposition home or self-care (01) ==
LOC: HO.HMCC 12:09
PROVIDERS: PCP Internal Medicine; Visit Provider Internal Medicine
DX: M85.852 Other specified disorders of bone density and structure, left thigh (principal); E78.5 Hyperlipidemia, unspecified; I10 Essential (primary) hypertension; F17.200 Nicotine dependence, unspecified, uncomplicated

== ENCOUNTER → 2025-01-26 12:08 | Outpatient (BNVA) | payer MEDICARE, SELFPAY | PROVIDERS: PCP Internal Medicine; Visit Provider Internal Medicine | DX: M85.852 Other specified disorders of bone density and structure, left thigh (principal); N81.10 Cystocele, unspecified; E78.5 Hyperlipidemia, unspecified; I10 Essential (primary) hypertension; F17.210 Nicotine dependence, cigarettes, uncomplicated; Z78.0 Asymptomatic menopausal state; Z87.440 Personal history of urinary (tract) infections | CPT/HCPCS: 99212 ==

== ENCOUNTER 2025-03-24 11:13 | Outpatient (REF) | payer MEDICARE, SELFPAY ==
--- NOTE | ~2025-03-24 | MM_ITS ---
EXAMINATION: DXA BONE DENSITY AXIAL HISTORY: M85.852 - Other specified disorders of bone density and structure, left ... TECHNIQUE: [employer] Dual energy absorptiometry (DEXA) of the lumbar spine, total left hip, and femoral neck was performed. COMPARISON: Comparison is made with the prior examination dated 07/25/2022. FINDINGS: The bone mineral density of the lumbar spine is 1.119 g/cm2, corresponding to a T-score of -0.4, and a Z-score of 1.6. This is indicative of normal bone mineral density. This represents a BMD change of 1.4% compared to the prior exam. This is not statistically significant. The bone mineral density of the left total hip is 0.780 g/cm2, corresponding to a T-score of -1.8, and a Z-score of 0.6. This is indicative of osteopenia. This represents a BMD change of 4.7% compared to the prior exam. This is statistically significant. The bone mineral density of the left femoral neck is 0.790 g/cm2, corresponding to a T-score of -1.8, and a Z-score of 0.7. This is indicative of osteopenia. This represents a BMD change of 8.1% compared to the prior exam. FRACTURE RISK: The FRAX index suggests a ten year probability of major osteoporotic fracture of 21.1%, and of hip fracture 8.8%. MM/XR DEXA axial skeleton IMPRESSION: Based on bone mineral density, and according to World Health Organization (WHO) criteria, the diagnosis is consistent with osteopenia. Statistically, 68% of repeat scans fall within 1 SD (+/- 0.010 g/cm2 for AP spine L1-L4) and 1 SD (+/- 0.012 g/cm2 for femur total) FRAX is a trademark of the [employer]'s [place] [facility] Met[employer], a World Health Organization (WHO) Collaborating Center. Electronically signed by: Ronny Luther MD 03/24/2025 12:16 PM EDT
== END 2025-03-24 11:14 | disposition home or self-care (01) ==
LOC: HO.MAMMO 11:13
PROVIDERS: PCP Internal Medicine; Visit Provider Internal Medicine
DX: Z13.820 Encounter for screening for osteoporosis (principal); Z78.0 Asymptomatic menopausal state; M85.852 Other specified disorders of bone density and structure, left thigh
CPT/HCPCS: 77080

== ENCOUNTER → 2025-03-24 11:30 | Outpatient (BNV) | payer MEDICARE, SELFPAY | PROVIDERS: PCP Internal Medicine; Visit Provider Radiology Diagnostic Radiology | DX: E28.39 Other primary ovarian failure (principal) | CPT/HCPCS: 77080 ==

== ENCOUNTER 2025-04-06 12:04 | Outpatient (REF) | payer MEDICARE, SELFPAY ==
[2025-04-06 17:38] LABS: Appearance Urine Clear; Glucose Urine UA Negative (Negative); PH 6.0 (5.0-9.0); Specific Gravity - Urine 1.015 (1.005-1.025); UMIC TRIGGER UACC YES
[2025-04-06 18:06] LABS: UACC Culture Trigger YES
== END 2025-04-06 12:05 | disposition home or self-care (01) ==
LOC: HO.LNP 12:04
PROVIDERS: Internal Medicine; PCP Internal Medicine
DX: N94.89 Other specified conditions associated with female genital organs and menstrual cycle (principal); M85.852 Other specified disorders of bone density and structure, left thigh; R30.0 Dysuria
CPT/HCPCS: 81001; 81003; 87086; 99212

== ENCOUNTER 2025-04-06 12:04 | Outpatient (AMB) | payer MEDICARE, SELFPAY ==
--- NOTE | 2025-04-06 12:08 | MHC.OFFWIV ---
Intake Vital Signs 04/06/25 12:09 Height 5 ft 3 in Weight 145 lb BMI 25.7 BP 144/70 H Blood Pressure Location Lt brachial Position Sitting Pulse 58 Pulse Source Pulse Oximeter Temp 98.0 F Temp Source Oral Pulse Oximetry (%) 97 Oxygen Delivery Method Room Air Intake Visit Reasons: ep uti check Patient Tobacco Use Status: Current everyday Tobacco user Allergies ranitidine (Zantac) Allergy (Unknown, Verified 04/06/25 12:25) fever and rash lisinopril Adverse Reaction (Unknown, Verified 04/06/25 12:25) dry cough famotidine (From Pepcid) Adverse Reaction (Verified 04/06/25 12:25) elevates BP Medication List - Last Reconciled 04/06/25 by Avani Moreira MD cholecalciferol (vitamin D3) 50 mcg PO DAILY estradiol 0.01%(0.1mg/gram) (Estrace) 1 g vaginal 2XW fluticasone propionate 50 mcg/actuation 1 spray intranasal DAILY PRN hydrochlorothiazide 12.5 mg PO QAM hydrocortisone 2.5% 1 appl [place] BID PRN lorazepam 1 mg PO DAILY PRN pravastatin 20 mg PO DAILY Do you need a note to return to daycare/school/sports/work: No HPI ep uti check HPI Details History of Present Illness The patient is an 84-year-old female presenting with urinary tract infection (UTI) concern. Urinary Tract Infection (UTI) Concern: - Experiencing a burning sensation during urination. And otherwise - No associated itching. - No fever, no nausea, no vomiting, no pain in the abdomen, and no back pain reported. - Previous occurrence of similar symptoms reported in early spring. - Previous urine test in December was normal. Patient was prescribed estradiol cream which she stopped taking after November of this year Patient says that it had no refills Medical History: - Recurrent urinary tract infections - Osteopenia Medications: - Estrogen cream (previously used for symptom management, currently not in use) Problem List - vaginal burning sensation without signs of bladder infection on urine analysis today - Osteopenia Plan - Consideration given for reinitiating low-dose estrogen cream to manage symptoms; patient agreed to refilling the prescription. - Patient is advised to visit the lab for urine testing in the event of symptom exacerbation. In couple of days however today's urinalysis shows no blood or signs of infection - Bone density results indicate osteopenia; patient is informed and will discuss details further with Dr. Toledo during the next scheduled appointment in May. - Encouragement to monitor for symptom changes or new symptoms and seek evaluation if needed. Review of Systems - General: No fever no chills - Neurological: No headaches no dizziness - Ear nose throat: No sore throat no hearing difficulty no ear pain - Cardiovascular: No syncope, no chest pain, no palpitations - Gastrointestinal: No nausea vomiting or diarrhea Physical Exam - General: No acute distress - HEENT: No acute findings - Neck: Supple - Respiratory system: Able to talk in full sentences, no audible wheeze - Gastrointestinal: No pain suprapubic or back - Extremities: No new findings - [employer]ATION EQUIPMENT MECHANIC: Alert awake oriented x3 motor intact - Skin: Normal turgor PFSH Medical History Postmenopausal atrophic vaginitis History of compression fracture of spine Impaired fasting glucose Hx of basal cell carcinoma External hemorrhoids Smoker unmotivated to quit COPD (chronic obstructive pulmonary disease) Lumbar compression fracture Osteopenia of left femoral neck Essential hypertension Dyslipidemia Generalized anxiety disorder Surgical History History of ganglion cyst H/O left breast biopsy History of tonsillectomy History of colonoscopy Family History Father No problems noted. Mother No problems noted. Sister No problems noted. Sister Breast cancer Endometrial cancer Daughter No problems noted. Daughter No problems noted. Social History Housing: House Alcohol intake: current Patient Tobacco Use Status: Current everyday Tobacco user Cigarette Packs Per Day: 0 Cigarettes Per Day: 15 Years Smoked: 68 e-Cigarette/Vaping Use: Never Used service: No Current occupational status: retired Cognitive needs: No Hearing needs: No Vision needs: Yes Physical Exam Vital Signs: Last Vital Signs Temp 98.0 F 04/06/25 12:09 Pulse 58 04/06/25 12:09 BP 144/70 H 04/06/25 12:09 Pulse Ox 97 04/06/25 12:09 Oxygen Delivery Method Room Air 04/06/25 12:09 BMI result Body Mass Index 25.7 Results AMB Urinalysis, Automated UA Leukoctes 0 Jenny/uL Last Edit by Federico Green CMA on 04/06/25 13:30 UA Nitrite Negative Last Edit by Federico Green, JEFERSON on 04/06/25 13:30 UA Urobilinogen 0.2 mg/dL Last Edit by Federico Green, JEFERSON on 04/06/25 13:30 UA Protein 0 mg/dL Last Edit by Federico Green, JEFERSON on 04/06/25 13:30 UA pH 6.0 Last Edit by Federico Green, JEFERSON on 04/06/25 13:30 UA Blood 0 Luis/uL Last Edit by Federico Green, JEFERSON on 04/06/25 13:30 UA Specific [place] 1.015 Last Edit by Federico Green, JEFERSON on 04/06/25 13:30 UA Ketone Negative Last Edit by Federico Green, JEFERSON on 04/06/25 13:30 UA Bilirubin 0 mg/dL Last Edit by Federico Green, JEFERSON on 04/06/25 13:30 UA Glucose 0 mg/dL Last Edit by Federico Green, JEFERSON on 04/06/25 13:30 Results Reviewed Results Reviewed: Laboratory Last Values Urine pH (Auto) 6.0 04/06/25 12:08 Specific [place] (Auto) 1.015 04/06/25 12:08 Urine Protein (Auto) 0 mg/dL 04/06/25 12:08 Glucose (UA)(Auto) 0 mg/dL 04/06/25 12:08 Urine Ketones (Auto) Negative 04/06/25 12:08 Urine Blood (Auto) 0 Luis/uL 04/06/25 12:08 Urine Nitrite (Auto) Negative 04/06/25 12:08 Urine Bilirubin (Auto) 0 mg/dL 04/06/25 12:08 Urine Urobilinogen (Auto) 0.2 mg/dL 04/06/25 12:08 Leukocyte Esterase (Auto) 0 Jenny/uL 04/06/25 12:08 Assessment & Plan Assessment & Plan (1) Vaginal burning: Code(s): N94.89 - Other specified conditions associated with female genital organs and menstrual cycle (2) Osteopenia: Code(s): M85.80 - Other specified disorders of bone density and structure, unspecified site Qualifiers: Osteopenia location: unspecified Qualified Code(s): M85.80 - Other specified disorders of bone density and structure, unspecified site Plan Urinary Tract Infection (UTI) Concern: - Experiencing a burning sensation during urination. And otherwise - No associated itching. - No fever, no nausea, no vomiting, no pain in the abdomen, and no back pain reported. - Previous occurrence of similar symptoms reported in early spring. - Previous urine test in December was normal. Patient was prescribed estradiol cream which she stopped taking after November of this year Patient says that it had no refills Medical History: - Recurrent urinary tract infections - Osteopenia Medications: - Estrogen cream (previously used for symptom management, currently not in use) Problem List - vaginal burning sensation without signs of bladder infection on urine analysis today - Osteopenia Plan - Consideration given for reinitiating low-dose estrogen cream to manage symptoms; patient agreed to refilling the prescription. - Patient is advised to visit the lab for urine testing in the event of symptom exacerbation. In couple of days however today's urinalysis shows no blood or signs of infection - Bone density results indicate osteopenia; patient is informed and will discuss details further with Dr. Toledo during the next scheduled appointment in May. - Encouragement to monitor for symptom changes or new symptoms and seek evaluation if needed. Orders: Orders UA CC w/rflx Micro + Cult Today Avani Moreira MD R30.0 - Dysuria AMB Urinalysis Automated Today Justina Corral PA-C Z13.9 - Encounter for screening, unspecified Medications: Refilled estradiol 0.01%(0.1mg/gram) (Estrace) 1 g vaginal 2XW 42.5 grams 0RF Avani Moreira MD N95.2 - Postmenopausal atrophic vaginitis Coding Level of Care Code Est Pt Level 3 (83036) Diagnoses Vaginal burning N94.89 Osteopenia, unspecified location M85.80 Osteopenia location: unspecified
[2025-04-06 12:09] VITALS: BP 144/70; PULSE 58; TEMP 36.7; O2SAT 97; BMI 25.7
== END 2025-04-06 13:36 | disposition home or self-care (01) ==
PROVIDERS: PCP Internal Medicine; Visit Provider Internal Medicine
DX: N94.89 Other specified conditions associated with female genital organs and menstrual cycle (principal); M85.80 Other specified disorders of bone density and structure, unspecified site; Z13.9 Encounter for screening, unspecified

== ENCOUNTER 2025-06-03 10:00 | Outpatient (REF) | payer MEDICARE, SELFPAY ==
[2025-06-03 14:15] LABS: Hematocrit 40.6 % (37.0-47.0); Hemoglobin 13.2 g/dl (12.0-16.0)
[2025-06-03 14:42] LABS: Alanine Aminotransferase 21 U/L (0-31); Anion Gap 12 (12-20); Aspartate Amino Transferase 30 U/L (5-31); Blood Urea Nitrogen 18 mg/dL (9-16); Calcium 9.7 mg/dL (8.4-10.2); Carbon Dioxide 27 mmol/L (22-29); Chloride 107 mmol/L (96-108); Cholesterol 177 mg/dL (<200); Estimated Glomerular Filt Rate > 60; HDL Cholesterol 63 mg/dL (>40); Potassium 3.7 mmol/L (3.3-5.1); Sodium 142 mmol/L (135-145); Triglycerides 73 mg/dL (<150)
== END 2025-06-03 10:01 ==
LOC: HO.HMGCLDS 10:00
PROVIDERS: PCP Internal Medicine; Visit Provider Internal Medicine
DX: I10 Essential (primary) hypertension (principal); E78.5 Hyperlipidemia, unspecified; M85.852 Other specified disorders of bone density and structure, left thigh; F17.200 Nicotine dependence, unspecified, uncomplicated
CPT/HCPCS: 36415; 80048; 80061; 82306; 84450; 84460; 85014; 85018

== ENCOUNTER 2025-06-08 10:58 | Outpatient (AMB) | payer MEDICARE, SELFPAY ==
[2025-06-08 10:59] VITALS: BP 140/78; PULSE 69; RESP 16; TEMP 36.8; O2SAT 100; BMI 25.0
--- NOTE | 2025-06-08 10:59 | MHC.PC.OV ---
Vital Signs 06/08/25 10:59 Height 5 ft 3 in Weight 141 lb BMI 25.0 BP 140/78 H Blood Pressure Location Rt brachial Position Sitting Respiration 16 Pulse 69 Pulse Source Pulse Oximeter Temp 98.2 F Temp Source Oral Pulse Oximetry (%) 100 Oxygen Delivery Method Room Air Intake Visit Reasons: 4 months f/up Intake Note: Pt is here today for her 4mo. f/u Milieu Counselor Required: No Allergies ranitidine (Zantac) Allergy (Unknown, Verified 06/08/25 11:07) fever and rash lisinopril Adverse Reaction (Unknown, Verified 06/08/25 11:07) dry cough famotidine (From Pepcid) Adverse Reaction (Verified 06/08/25 11:07) elevates BP Medication List - Last Reconciled 06/08/25 by Ijeoma Toledo MD cholecalciferol (vitamin D3) 50 mcg PO DAILY fluticasone propionate 50 mcg/actuation 1 spray intranasal DAILY PRN hydrochlorothiazide 12.5 mg PO QAM hydrocortisone 2.5% 1 appl [place] BID PRN lorazepam 1 mg PO DAILY PRN pravastatin 20 mg PO DAILY Tobacco use date assessed: 06/08/25 Fall risk assessment: No Falls in past year Last assessed Fall Risk: 06/08/25 Dental Screening Dental Screen Date: 06/08/25 Did you have a dental visit in the last 12 months?: Yes Did you have a dental problem in the last 6 months where you did not have access to dental care?: No Was dental information given to patient?: Patient has dentist HPI 4 months f/up HPI Details 84-year-old lady with history of hypertension, dyslipidemia, impaired fasting glucose and anxiety disorder, here today for her follow-up. Currently taking hydrochlorothiazide 12.5 mg in the morning for blood pressure control. Unfortunately continues to smoke cigarettes with no desire to quit at present time. Had recent fasting labs done which showed normal fasting lipids and fasting glucose in the prediabetic range Takes lorazepam 1/2-1 tablet as needed for acute anxiety attacks and to help with the occasional difficulty sleeping. Her recent lab work showed she is not anemic and has normal cholesterol, sugar, and vitamin D levels. She takes [id number] vitamin B12 intermittently, which she feels helps with her energy levels. She has received her flu, pneumonia, and RSV immunizations but has not had the COVID-19 booster or the shingles vaccine. Complains of vaginal irritation, dryness and itching ever since she stopped using the estrogen cream. Would like to be placed back on it , but would like to be switched inserted vaginal tablets instead of the cream which is messy to use HPI Comments History of Present Illness Details [facility] Medical History Postmenopausal atrophic vaginitis History of compression fracture of spine Impaired fasting glucose Hx of basal cell carcinoma External hemorrhoids Smoker unmotivated to quit COPD (chronic obstructive pulmonary disease) Lumbar compression fracture Osteopenia of left femoral neck Essential hypertension Dyslipidemia Generalized anxiety disorder Surgical History History of ganglion cyst H/O left breast biopsy History of tonsillectomy History of colonoscopy Family History Father No problems noted. Mother No problems noted. Sister No problems noted. Sister Breast cancer Endometrial cancer Daughter No problems noted. Daughter No problems noted. Social History Housing: House Alcohol intake: current Patient Tobacco Use Status: Current everyday Tobacco user Cigarette Packs Per Day: 0 Cigarettes Per Day: 15 Years Smoked: 68 e-Cigarette/Vaping Use: Never Used service: No Current occupational status: retired Cognitive needs: No Hearing needs: No Vision needs: Yes Questionnaire PHQ-9 Over the last 2 weeks, how often have you been bothered by any of the following problems? Depression Screening Interpretation: Negative Depression Screening Done: Yes Source: Developed by Drs. Ronny England, Yesy Garcia, Feliz Garay and colleagues, with an educational orly from [employer]. Thrive Questionnaire Date Thrive assessed: 01/26/25 Currently or been in a relationship where the following occur: No concerns reported THRIVE Score: 0 KALINA-7 AMB Questionnaire KALINA-7 Date KALINA - 7 assessed: 06/08/25 Source: Developed by Drs. Ronny England, Yesy Garcia, Feliz Garay and colleagues, with an educational orly from [employer]. Review of Systems Narrative Const Denies fatigue, Denies fever(s), Denies headache(s) and Denies weakness Eyes Denies change in vision ENT Denies dizziness, Denies headache(s), Denies nasal congestion and Denies nasal discharge Card Denies chest pain, Denies lightheadedness, Denies palpitations and Denies dyspnea Resp Denies chest congestion, Denies cough and Denies dyspnea GI Denies abdominal pain, Denies change in bowel habits and Denies heartburn Reports as per HPI Musc Details: Occasional pain stiffness in lower back and fingers, worse in the morning Neuro Denies dizziness, Denies headache(s) and Denies weakness Psych Reports no additional complaints Endo Denies fatigue, Denies polydipsia, Denies polyuria and Denies palpitations Carlyle/Lymph Reports no additional complaints Aller/Immun Reports no additional complaints Physical exam (Primary Care) Vital Signs: Last Vital Signs Temp 98.2 F 06/08/25 10:59 Pulse 69 06/08/25 10:59 Resp 16 06/08/25 10:59 BP 140/78 H 06/08/25 10:59 Pulse Ox 100 06/08/25 10:59 Oxygen Delivery Method Room Air 06/08/25 10:59 BMI result Body Mass Index 25.0 Tobacco/Smoking Status: Tobacco use Status Tobacco use date assessed 06/08/25 06/08/25 11:06 Patient Tobacco Use Status Current everyday Tobacco 06/08/25 11:00 e-Cigarette/Vaping Use Never Used 06/08/25 11:00 Depression Screening Interpretation: Negative Thrive Assessment: Date of Thrive Assessment Date Thrive assessed 01/26/25 06/08/25 11:00 Currently or been in a relationship where the following occur: No concerns reported Narrative Const Other: Alert oriented x3 no acute distress noted ambulatory normal gait HENMT Other: Normocephalic atraumatic, no nasal drainage, moist oral mucosa Eyes General: appearance normal, both eyes and all related structures Neck Other: Neck is supple with no lymphadenopathy palpated, thyroid gland nonpalpable Resp Other: Clear to auscultation bilaterally Cardio Other: S1-S2 present regular rate and rhythm GI Other: Normal bowel sounds, soft, nontender, no mass palpated Back/Spine/Pelvis Other: Positive kyphosis Neuro General: gait normal, moves all extremities, Normal light touch and pain sensation and no focal motor deficits Extrem General: Yes full ROM, Yes no joint enlargement, Yes no pedal edema, Yes no calf tenderness and Yes normal gait Psych Appearance: grossly normal and well kempt Mental Status: mental status grossly normal Speech and movement: Normal speech and movement present Affect: normal affect Results Reviewed Results Reviewed: Name: Chanelle Dawn Age/Sex: 84/F : 1940 Unit#: [id number] Attend Dr: Ijeoma Toledo MD Re06/03/25 Status: DEP REF Location: [facility] Disch: SPEC : [id number] ÁNGEL: 06/03/25 STATUS: COMP REQ : [id number] RECD: 06/03/25-[address]: Ijeoma Toledo MD COMP: 06/03/25-1443 ENTERED: 06/03/25-[address]: ORDERED: Met Prof Fast, AST, ALT, Lipid Panel, Vitamin D 25-OH Test Result Flag Reference Sodium 142 135-145 mmol/L Potassium 3.7 3.3-5.1 mmol/L Slight Hemolysis.Interpret result with caution. CL 107 96-108 mmol/L CO2 27 22-29 mmol/L Gap 12 12-20 BUN 18 H 9-16 mg/dL Creat 0.73 0.5-1.4 mg/dL eGFR > 60 Chronic Kidney Disease: Estimated GFR < 60 mL/min/1.73m2 Severe Kidney Disease: Estimated GFR < 15 mL/min/1.73m2 FBS 105 H 60-99 mg/dL A fasting glucose from 100-125 mg/dl is considered impaired (pre-diabetes). CA 9.7 # 8.4-10.2 mg/dL AST (GOT) 30 5-31 U/L Slight Hemolysis.Interpret result with caution. ALT (GPT) 21 0-31 U/L Triglyceride 73 <150 mg/dL Desirable Triglyceride: less than 150 mg/dL Borderline High Triglyceride 150-199 mg/dL High Triglyceride: 200-499 mg/dL Very High Triglyceride: greater than or equal to 5OO mg/dL Cholesterol 177 <200 mg/dL Desirable Cholesterol: less than 200 mg/dL Borderline High Cholesterol: 200-239 mg/dL High Cholesterol: greater than 239 mg/dL LDL Calculated 100 H <100 mg/dL Desirable LDL: less than 100 mg/dL Near Optimal/Above Optimal LDL: 110-129 mg/dL Borderline High LDL: 130-159 mg/dL High LDL: 160-189 mg/dL Very High LDL: greater than or equal to 190 mg/dL HDL 63 >40 mg/dL Desirable HDL: greater than 40 mg/dL Note: This HDL assay may give artificially low results in patients with liver disease. Vitamin D 25-OH 75.2 >30 ng/mL Health Based Reference Values* < 20 ng/mL Deficient 20-30 ng/mL Insufficient > 30 ng/mL Sufficient Laboratory Tests 06/03/25 10:06 Hgb 13.2 Hct 40.6 Coding Level of Care Code Est Pt Level 4 (33027) Diagnoses Essential hypertension I10 Dyslipidemia E78.5 Impaired fasting glucose R73.01 Generalized anxiety disorder F41.1 Postmenopausal atrophic vaginitis N95.2 Assessment & Plan Assessment & Plan (1) Essential hypertension: Code(s): I10 - Essential (primary) hypertension Category: Medical Plan: Blood pressure at goal of less than 130/80. Continue with current medication. Reinforced importance of following a low sodium diet, getting regular exercise, and lowering stress levels. (2) Dyslipidemia: Code(s): E78.5 - Hyperlipidemia, unspecified Category: Medical Plan: Fasting lipids are within normal limits, continue with pravastatin 20 mg at bedtime (3) Impaired fasting glucose: Code(s): R73.01 - Impaired fasting glucose Category: Medical Plan: Your previous fasting blood sugars were elevated above 100 mg/dL. Impaired glucose metabolism increases the risk for developing diabetes mellitus type 2, as well as heart attack and stroke later on. Lifestyle changes that promotes weight loss, healthy eating habits, and regular exercise are important, and can prevent the progression to diabetes (4) Generalized anxiety disorder: Code(s): F41.1 - Generalized anxiety disorder Category: Medical Plan: Takes lorazepam 1 mg per tablet, usually takes half a tablet at night to help with acute anxiety attacks and to help her sleep (5) Postmenopausal atrophic vaginitis: Code(s): N95.2 - Postmenopausal atrophic vaginitis Category: Medical Plan: Prescription sent for Yuvafem 10 mcg per tablet , insert vaginally twice a week. Plan Orders: Orders Lipid Panel 09/22/25 E78.5 - Hyperlipidemia, unspecified, F41.1 - Generalized anxiety disorder, I10 - Essential (primary) hypertension, M85.80 - Other specified disorders of bone density and structure, unspecified site, R73.01 - Impaired fasting glucose Basic Metabolic Panel Fasting 09/22/25 E78.5 - Hyperlipidemia, unspecified, F41.1 - Generalized anxiety disorder, I10 - Essential (primary) hypertension, M85.80 - Other specified disorders of bone density and structure, unspecified site, R73.01 - Impaired fasting glucose Aspartate Amino Transferase 09/22/25 E78.5 - Hyperlipidemia, unspecified, F41.1 - Generalized anxiety disorder, I10 - Essential (primary) hypertension, M85.80 - Other specified disorders of bone density and structure, unspecified site, R73.01 - Impaired fasting glucose Alanine Aminotransferase 09/22/25 E78.5 - Hyperlipidemia, unspecified, F41.1 - Generalized anxiety disorder, I10 - Essential (primary) hypertension, M85.80 - Other specified disorders of bone density and structure, unspecified site, R73.01 - Impaired fasting glucose Vitamin D 25-OH Total 09/22/25 E78.5 - Hyperlipidemia, unspecified, F41.1 - Generalized anxiety disorder, I10 - Essential (primary) hypertension, M85.80 - Other specified disorders of bone density and structure, unspecified site, R73.01 - Impaired fasting glucose Hemoglobin A1c 09/22/25 E78.5 - Hyperlipidemia, unspecified, F41.1 - Generalized anxiety disorder, I10 - Essential (primary) hypertension, M85.80 - Other specified disorders of bone density and structure, unspecified site, R73.01 - Impaired fasting glucose Vitamin B12 and Folate 09/22/25 E78.5 - Hyperlipidemia, unspecified, F41.1 - Generalized anxiety disorder, I10 - Essential (primary) hypertension, M85.80 - Other specified disorders of bone density and structure, unspecified site, R73.01 - Impaired fasting glucose Medications: New estradiol (Yuvafem) 10 mcg vaginal 2XW 9 tabs 4RF 30 days N95.2 - Postmenopausal atrophic vaginitis
== END 2025-06-08 11:27 | disposition home or self-care (01) ==
PROVIDERS: PCP Internal Medicine; Visit Provider Internal Medicine
DX: I10 Essential (primary) hypertension (principal); E78.5 Hyperlipidemia, unspecified; R73.01 Impaired fasting glucose; F41.1 Generalized anxiety disorder; N95.2 Postmenopausal atrophic vaginitis

== ENCOUNTER → 2025-06-08 10:58 | Outpatient (BNVA) | payer MEDICARE, SELFPAY | PROVIDERS: PCP Internal Medicine; Visit Provider Internal Medicine | DX: I10 Essential (primary) hypertension (principal); E78.5 Hyperlipidemia, unspecified; R73.01 Impaired fasting glucose; F41.1 Generalized anxiety disorder; N95.2 Postmenopausal atrophic vaginitis | CPT/HCPCS: 96127; 99212 ==